=== PATIENT | female | born 1960 | race Caucasian/White ===

== ENCOUNTER 2018-01-29 09:48 | Emergency (ER) | payer BC, OTHER ==
[2018-01-29 09:59] VITALS: BP 160/96; PULSE 108; RESP 20; TEMP 98.9
--- NOTE | 2018-01-29 11:16 | XR ---
EXAMINATION TYPE: XR finger LT DATE OF EXAM: 01/29/2018 COMPARISON: NONE HISTORY: Pain TECHNIQUE: Three views are submitted. FINDINGS: The osseous structures are intact. There is no acute fracture or dislocation. Swelling involving the distal first digit. No destructive changes. Narrowing of the visualized joint spaces. IMPRESSION: 1. No definite acute fracture or dislocation if symptoms persist, follow-up study in 7 to 10 days wo uld be suggested. 2. Soft tissue swelling distally may been the basis of a cellulitis. No destructive changes.
--- NOTE | 2018-01-29 12:18 | ED ---
Skin/Abscess/FB HPI - General Chief complaint: Skin/Abscess/Foreign Body Stated complaint: Infected thumb Time Seen by Provider: 01/29/18 10:44 Source: patient, RN notes reviewed, old records reviewed Mode of arrival: ambulatory Limitations: no limitations - History of Present Illness Initial comments: 58 year old femael with CC of left thumb paronychia for one week after picking a hang nail. No history of MRSA, does report no previous paronychia. Full RIM of thumb. No redness or swelling to the hand. - Related Data Previous Rx's Medication Instructions Recorded Cephalexin [Keflex] 500 mg PO Q6HR #40 cap 01/29/18 Allergies Allergy/AdvReac Type Severity Reaction Status Date / Time Sulfa (Sulfonamide Allergy Rash/Hives Verified 01/29/18 10:11 Antibiotics) Review of Systems ROS Statement: Those systems with pertinent positive or pertinent negative responses have been documented in the HPI. ROS Other: All systems not noted in ROS Statement are negative. Past Medical History Past Medical History: No Reported History History of Any Multi-Drug Resistant Organisms: None Reported Past Surgical History: Appendectomy Past Psychological History: No Psychological Hx Reported Smoking Status: Former smoker Past Alcohol Use History: Daily Past Drug Use History: None Reported General Exam - General Exam Comments Initial Comments: This is a 58 year old female, no distress. Limitations: no limitations General appearance: alert, in no apparent distress Head exam: Present: atraumatic, normocephalic, normal inspection Eye exam: Present: normal appearance, PERRL, EOMI. Absent: scleral icterus, conjunctival injection, periorbital swelling ENT exam: Present: normal exam, mucous membranes moist Neck exam: Present: normal inspection. Absent: tenderness, meningismus, lymphadenopathy Respiratory exam: Present: normal lung sounds bilaterally. Absent: respiratory distress, wheezes, rales, rhonchi, stridor Cardiovascular Exam: Present: regular rate, normal rhythm, normal heart sounds. Absent: systolic murmur, diastolic murmur, rubs, gallop, clicks GI/Abdominal exam: Present: soft, normal bowel sounds. Absent: distended, tenderness, guarding, rebound, rigid Extremities exam: Present: full ROM, normal capillary refill, other (Evdience of 2cm paronychia over left thumb. Full ROM normal cap refil. ). Absent: normal inspection, tenderness, pedal edema, joint swelling, calf tenderness Neurological exam: Present: alert, oriented X3, CN II-XII intact Psychiatric exam: Present: normal affect, normal mood Course Vital Signs 01/29/18 09:56 Temperature 98.9 F Pulse Rate 108 H Respiratory 20 Rate Blood Pressure 160/96 O2 Sat by Pulse 98 Oximetry Procedures - Incision & Drainage Site: upper extremity (L thumb paronychia) Size (cm): 2 I&D Cleaning Method: Iodine Sterile Field Used?: Yes Scalpel Used: #11 I&D Drainage Obtained: Pus Culture Obtained?: Yes Patient Tolerated Procedure: well, no complications Medical Decision Making - Medical Decision Making 58 year old female with CC of left thumb paronychia for one week. She has 2cm abscess over thumb. Xray shows no meena abnormalities. Patient has full ROM and Neurovascularly intact. Incision and drainage completed nad pus removed. Culture obtained. Patient will do warm soaks, follow up with PCP and hand specialist. Will place on keflex. Aprox 4cc of purulent fluid removed. Disposition Clinical Impression: Paronychia of left thumb Disposition: HOME SELF-CARE Condition: Good Instructions: Paronychia (ED) Additional Instructions: Patient is advised to do frequent soaks of the thumb. Keep the wound clean and dry with dressing put antibiotic ointment on it. Take all the antibiotics as prescribed. Patient should also have a probiotic while taking the antibiotics. Make sure you take it with food. Patient should follow-up with primary care provider and hand specialist. Return to the emergency department if any alarming signs or symptoms occur. Prescriptions: Cephalexin [Keflex] 500 mg PO Q6HR #40 cap Is patient prescribed a controlled substance at d/c from ED?: No When asked, does pt state using other controlled substances?: No If prescribed controlled substance>3 days was MAPS reviewed?: No If opioid is for acute pain is fill amount 7 days or less?: No If Rx opioid, was Start Talking consent form obtained?: No Referrals: Jean Marie Melton MD [Primary Care Provider] - 1-2 days Time of Disposition: 12:15
== END 2018-01-29 12:30 | disposition home or self-care (01) ==
LOC: EEVIPCON 09:48 → EC 09:48
DX: L03.012 Cellulitis of left finger (principal); Z87.891 Personal history of nicotine dependence; Z88.2 Allergy status to sulfonamides
CPT/HCPCS: 10060; 87070; 87205; 99284

== ENCOUNTER 2018-02-16 18:22 | Inpatient (IN) | payer BC, OTHER ==
--- NOTE | 2018-02-16 18:39 | ED ---
General Adult HPI - General Chief complaint: Psychiatric Symptoms Stated complaint: psych eval Source: EMS Mode of arrival: EMS Limitations: altered mental status - History of Present Illness Initial comments: Dictation was produced using [employer] dictation software. please excuse any grammatical, word or spelling errors. Chief Complaint: 58-year-old female transferred from [facility] for suicidal ideation, hyponatremia and EtOH intoxication. History of Present Illness: Patient was seen and evaluated initially at [facility]. She was evaluated by hospitalist staff there. They recommended patient be transferred. Patient is transferred for hyponatremia, EtOH intoxication, hyperglycemia and hyponatremia. Patient allegedly told someone that she was suicidal. Patient received at her facility. She denies any suicidal ideation at this time. Patient was seen by Dr. Ewing. According to transfer documentation patient's hyperglycemia was 579, EtOH 300, sodium 122. Patient was given banana bag prior to transfer. The ROS documented in this emergency department record has been reviewed and confirmed by me. Those systems with pertinent positive or negative responses have been documented in the HPI. All other systems are other negative and/or noncontributory. - Related Data Previous Rx's Medication Instructions Recorded Cephalexin [Keflex] 500 mg PO Q6HR #40 cap 01/29/18 Allergies Allergy/AdvReac Type Severity Reaction Status Date / Time Sulfa (Sulfonamide Allergy Rash/Hives Verified 01/29/18 10:11 Antibiotics) Review of Systems ROS Statement: Those systems with pertinent positive or pertinent negative responses have been documented in the HPI. ROS Other: All systems not noted in ROS Statement are negative. Past Medical History Past Medical History: Diabetes Mellitus History of Any Multi-Drug Resistant Organisms: None Reported Past Surgical History: Appendectomy Past Psychological History: No Psychological Hx Reported Smoking Status: Former smoker Past Alcohol Use History: Daily Past Drug Use History: None Reported General Exam - General Exam Comments Initial Comments: PHYSICAL EXAM: General Impression: Alert and oriented x3, not in acute distress HEENT: Normocephalic atraumatic, extra-ocular movements intact, pupils equal and reactive to light bilaterally, mucous membranes moist. Cardiovascular: Heart regular rate and rhythm, S1&S2 audible, no murmurs, rubs or gallops Chest: Lungs clear to auscultation bilaterally, no rhonchi, no wheeze, no rales Abdomen: Bowel sounds present, abdomen soft, non-tender, non-distended, no organomegaly Musculoskeletal: Pulses present and equal in all extremities, no peripheral edema Motor: Power 5/5 bilaterally, no focal deficits noted Neurological: CN II-XII grossly intact, no focal motor or sensory deficits noted Skin: Intact with no visualized rashes Psych: Normal affect and mood Limitations: altered mental status Course Vital Signs 02/16/18 18:29 Temperature 99.3 F Pulse Rate 100 Respiratory 18 Rate Blood Pressure 139/88 O2 Sat by Pulse 95 Oximetry Medical Decision Making - Medical Decision Making ED course: 58-year-old female presents for abnormal laboratory evaluation and suicidal ideation. Patient denies being suicidal at this time. According to transfer documentation she did report some of that she was suicidal. Daughter endorses suicidal ideation as well. Patient does not have a specific means. Patient reports drinking heavily on a daily basis. She drank a case of beer prior to coming to the emergency department. Hospitalist staff at [facility] recommended patient be transferred here for further medical management. Vital signs upon arrival are within acceptable limits. Patient has mild tachycardia at 100. Tach mentation from transferring facility was reviewed by myself. There is metabolic derangement likely secondary to hyperglycemia and alcohol intoxication. Patient otherwise is stable. She has no complaints. Patient be admitted to hospitalist's request by transferring physician from other facility. Disposition Clinical Impression: Suicidal ideation, Alcohol intoxication Disposition: ADMITTED IP TO THIS HOSP Condition: Fair Referrals: None,Stated [Primary Care Provider] - 1-2 days Decision Time: 19:06
[2018-02-16] MEDS ORDERED: NALOXONE 0.4 MG/ML 1 ML VIAL IV PRN (19:03)
[2018-02-16 19:17] LABS: Basophils % (A) 0 %; Eosinophils % (A) 1 %; HCT 33.6 % (34.0-46.0); HGB 11.8 gm/dL (11.4-16.0); Lymphocytes # (A) 1.5 k/uL (1.0-4.8); Lymphocytes % (A) 29 %; MCV 91.5 fL (80.0-100.0); Mean Platelet Volume 8.4; Monocytes # (A) 0.3 k/uL (0-1.0); Monocytes % (A) 6 %; Neutrophils # (A) 3.3 k/uL (1.3-7.7); Neutrophils % (A) 62 %; Platelet Count 176 k/uL (150-450); RBC 3.68 m/uL (3.80-5.40); RDW 14.7 % (11.5-15.5); WBC 5.3 k/uL (3.8-10.6)
[2018-02-16 19:26] LABS: Magnesium 1.6 mg/dL (1.6-2.3); Potassium 3.8 mmol/L (3.5-5.1)
[2018-02-16] MEDS ORDERED: DEXTROSE 5%-0.45% NACL 1,000 ML IV ONE (20:08)
[2018-02-16] MEDS ORDERED: DEXTROSE 5%-0.2% NACL 1,000 ML IV ONE (20:12)
[2018-02-16] MEDS ORDERED: DEXTROSE 5% IN WATER 1,000 ML IV ONE (21:01)
--- NOTE | 2018-02-16 21:42 | P.HPIM ---
History of Present Illness Luna Logan a 58 y.o.femaleWith no significant PMH who present because of suicidal ideation. i saw pt earlier today at [facility] and Pt states to me she asked her girlfriend Ross to call ambulance today because she was scared that she was going to kill herself. Patient became tearful and started crying . She states that her cheated on her and that is causing big stress for her, this happened about 5 years ago and she got however she still distressed and yesterday for the first time she was thinking of killing herself, and she got scared and so called her girlfriend to call the ambulance to come to emergency room. Patient denies any suicidal plan or attempt , she denies using pills. She states she drinks alcohol every days about 15 bottles of beer. She denies liquor or wine drinking. And she wants also to quit drinking. Also in the emergency room blood tests done today at 1516 and she was found to be hyponatremic at 122. glucose 131. Her creatinine was 0.8. Urine toxicology was negative. Alcohol level was high at 307. WBC 5.2. Hemoglobin 11.5. Platelets 176. she got NS 1 Liter at [facility] , after transfer repeat labs at 18:35 shows Na of 133 , i discussed the case with the on -call continuous conveyor screen drier who recommended to place on D5 at 70 ml/hours and recheck Na in 2-3 hours for f/u. Review of Systems CONSTITUTIONAL: No fever, no malaise, no fatigue. HEENT: No recent visual problems or hearing problems. Denied any sore throat. CARDIOVASCULAR: No orthopnea, PND, no palpitations, no syncope. PULMONARY: No shortness of breath, no cough, no hemoptysis. GASTROINTESTINAL: No diarrhea, no nausea, no vomiting, no abdominal pain. Normoactive bowel sounds. NEUROLOGICAL: No headaches, no weakness, no numbness. HEMATOLOGICAL: Denies any bleeding or petechiae. GENITOURINARY: Denies any burning micturition, frequency, or urgency. MUSCULOSKELETAL/RHEUMATOLOGICAL: Denies any joint pain, swelling, or any muscle pain. ENDOCRINE: Denies any polyuria or polydipsia. Past Medical History Past Medical History: Diabetes Mellitus History of Any Multi-Drug Resistant Organisms: None Reported Past Surgical History: Appendectomy Past Psychological History: No Psychological Hx Reported Smoking Status: Former smoker Past Alcohol Use History: Daily Past Drug Use History: None Reported Medications and Allergies Allergies Allergy/AdvReac Type Severity Reaction Status Date / Time Sulfa (Sulfonamide Allergy Rash/Hives Verified 02/16/18 20:03 Antibiotics) Physical Exam Vitals: Vital Signs Temp Pulse Resp BP Pulse Ox 02/16/18 20:16 99.4 F 97 18 131/78 96 02/16/18 18:29 99.3 F 100 18 139/88 95 Intake and Output 02/16/18 02/16/18 02/16/18 06:59 14:59 22:59 Other: Weight 54.431 kg General Appearance: Alert, cooperative, in psychological distress, appears stated age. Patient is tearful and crying HEENT: PERRL, conjunctiva/corneas clear, Neck: Supple, noJVD, no thyromegaly. Chest: Lungs are clear to auscultation bilaterally, respirations unlabored, no tenderness or deformity, Heart: Regular rate and rhythm, S1, S2 normal, no murmur, rub or gallop, pulses are present and symmetric, no S3 of S4. Abdomen: Soft, nontender, bowel sounds active all 4 quadrants, no masses, no organomegaly. Extremities: Normal, atraumatic, no cyanosis or edema , peripheral pulses 2+ bilaterally. Lymph nodes: Cervical, supraclavicular, and axillary nodes normal. Neurologic: Normal, awake and oriented x 3, no focal neuro deficit noted. Psychiatric: Normal with appropriate mood and affect. Results CBC & Chem 7: 02/16/18 18:35 02/16/18 18:35 Labs: Abnormal Lab Results - Last 24 Hours (Table) 02/16/18 02/16/18 Range/Units 18:35 18:35 RBC 3.68 L (3.80-5.40) m/uL Hct 33.6 L (34.0-46.0) % Sodium 133 L (137-145) mmol/L Chloride 95 L (98-107) mmol/L Carbon Dioxide 19 L (22-30) mmol/L BUN 5 L (7-17) mg/dL Glucose 114 H (74-99) mg/dL Assessment and Plan Plan: -hyponatremia, with sodium 122, no previous level.pt denies headache or abnormal movement. Patient she got fluids in the emergency room already, 1 L of normal saline as per the ED physician. Patient was placed also on banana bag. repeat labs showed her Na went up from 122 to 133. nephrology consult input is appreciated , discussed the case over the phone, pt is placed on D5W at 70 ml/ hr and will monitor Na level -Suicidal ideation, patient was tearful and she admits to Suicidal ideation of 2 days duration, place patient on one-to-one. call psych consult. -History of alcohol abuse, patient drinks [address] the patient on CIWA protocol and vitamins. Patient states she went before for AA group. Continue with DVT and GI prophylaxis prognosis is guarded
[2018-02-16 22:24] VITALS: BMI 21.3
[2018-02-16] MEDS: FAMOTIDINE 20 MG/2 ML VIAL IV SCH (22:37)
[2018-02-16] MEDS: HEPARIN SODIUM,PORCINE 5,000 UNIT/ML 1 ML VIAL SQ SCH (22:38)
[2018-02-17 04:38] LABS: Anion Gap 16 mmol/L; Blood Urea Nitrogen 6 mg/dL (7-17); Calcium 9.4 mg/dL (8.4-10.2); Carbon Dioxide 22 mmol/L (22-30); Chloride 98 mmol/L (98-107); Glucose 110 mg/dL (74-99); Potassium 4.2 mmol/L (3.5-5.1); Sodium 136 mmol/L (137-145)
[2018-02-17] MEDS ORDERED: DESMOPRESSIN ACETATE 4 MCG/ML VIAL (MDV) IV STA (07:00)
[2018-02-17 07:17] LABS: Glucose,Whole Blood 124 mg/dL (75-99)
[2018-02-17] MEDS: THIAMINE 100 MG/ML 2 ML VIAL IM SCH (09:35)
[2018-02-17] MEDS: HEPARIN SODIUM,PORCINE 5,000 UNIT/ML 1 ML VIAL SQ SCH ×2 (09:38→21:47)
[2018-02-17] MEDS: FAMOTIDINE 20 MG/2 ML VIAL IV SCH (09:43)
[2018-02-17] MEDS: DEXTROSE 5% IN WATER 1,000 ML IV SCH ×2 (09:44→21:44)
[2018-02-17 12:32] LABS: Anion Gap 17 mmol/L; Blood Urea Nitrogen 9 mg/dL (7-17); Calcium 9.3 mg/dL (8.4-10.2); Carbon Dioxide 17 mmol/L (22-30); Chloride 101 mmol/L (98-107); Glucose 115 mg/dL (74-99); Potassium 4.5 mmol/L (3.5-5.1); Sodium 135 mmol/L (137-145)
[2018-02-17] MEDS ORDERED: LORazepam 2 MG/ML INJ IV PRN ×2 (13:02)
[2018-02-17 13:04] LABS: Appearance,Urine Turbid (Clear); Bacteria,Urine Many /hpf; Bilirubin,Urine Negative (Negative); Blood,Urine Small (Negative); Color,Urine Yellow; Glucose,Urine (UA) Negative (Negative); Ketones,Urine Negative (Negative); Leukocyte Esterase,Urine Large (Negative); Mucus,Urine Rare /hpf; Nitrite,Urine Negative (Negative); PH, Urine 6.5 (5.0-8.0); Protein,Urine 1+ (Negative); Specific Gravity,Urine 1.008 (1.001-1.035); Squamous Epithelial Cell,Urine 2 /hpf (0-4); Urobilinogen,Urine <2.0 mg/dL (<2.0); WBC,Urine >182 /hpf (0-5)
[2018-02-17] MEDS: FOLIC ACID 1 MG TAB PO SCH (13:04)
[2018-02-17] MEDS: THIAMINE 100 MG TAB PO SCH (13:04)
[2018-02-17] MEDS: MULTIVITAMINS, THERA 1 EACH TAB PO SCH (13:04)
--- NOTE | 2018-02-17 15:11 | P.PN ---
Addendum entered and electronically signed by Madina Bonilla NP-C 02/17/18 15: 16: Plan: Initiate empiric antibiotics Rocephin, while awaiting urine culture results. Original Note: <Madina Bonilla - Last Filed: 02/17/18 14:47> Subjective Progress Note Date: 02/17/18 Progress note being dictated for Dr. Ewing Interval history:Luna Logan a 58 y.o.femaleWith no significant PMH who present because of suicidal ideation. i saw pt earlier today at [facility] and Pt states to me she asked her girlfriend Ross to call ambulance today because she was scared that she was going to kill herself. Patient became tearful and started crying . She states that her cheated on her and that is causing big stress for her, this happened about 5 years ago and she got however she still distressed and yesterday for the first time she was thinking of killing herself, and she got scared and so called her girlfriend to call the ambulance to come to emergency room. Patient denies any suicidal plan or attempt, she denies using pills. She states she drinks alcohol every days about 15 bottles of beer. She denies liquor or wine drinking. And she wants also to quit drinking. Also in the emergency room blood tests done today at and she was found to be hyponatremic at 122. glucose 131. Her creatinine was 0.8. Urine toxicology was negative. Alcohol level was high at 307. WBC 5.2. Hemoglobin 11.5. Platelets 176. she got NS 1 Liter at [facility] , after transfer repeat labs at 18:35 shows Na of 133 , i discussed the case with the on -call nut orchardist who recommended to place on D5 at 70 ml/hours and recheck Na in 2-3 hours for f/u. Review of Systems CONSTITUTIONAL: No fever, no malaise, no fatigue. HEENT: No recent visual problems or hearing problems. Denied any sore throat. CARDIOVASCULAR: No orthopnea, PND, no palpitations, no syncope. PULMONARY: No shortness of breath, no cough, no hemoptysis. GASTROINTESTINAL: No diarrhea, no nausea, no vomiting, no abdominal pain. Normoactive bowel sounds. NEUROLOGICAL: No headaches, no weakness, no numbness. HEMATOLOGICAL: Denies any bleeding or petechiae. GENITOURINARY: Denies any burning micturition, frequency, or urgency. MUSCULOSKELETAL/RHEUMATOLOGICAL: Denies any joint pain, swelling, or any muscle pain. ENDOCRINE: Denies any polyuria or polydipsia. 02/17/2018 suicide precautions maintained, sitter at bedside. Patient calm and cooperative. Maintained on D5 W with sodium significantly improved, currently 135 .denies lightheadedness dizziness or focal deficits. Denies headache.No seizure activity reported. Good diet intake. Denies nausea vomiting or diarrhea. UA suggestive of possible UTI, asymptomatic, T-max 99.4. Psychiatry consult in place with recommendations pending. Denies chest pain, palpitations or shortness of breath. Objective - Vital Signs Vital signs: Vital Signs Temp 97.1 F L 02/17/18 07:52 Pulse 103 H 02/17/18 08:51 Resp 16 02/17/18 07:52 BP 139/83 02/17/18 08:51 Pulse Ox 96 02/17/18 07:52 Intake & Output 02/16/18 02/17/18 02/17/18 18:59 06:59 18:59 Intake Total 800 180 Output Total 50 Balance 800 130 Weight 54.431 kg 53 kg Intake: Intake, IV Titration 800 Amount Dextrose 5% in Water 1, 800 000 ml @ 100 mls/hr IV . Q10H ONE Rx#:[id number] Oral 180 Output: Urine 50 Other: Voiding Method Toilet # Voids 1 - Exam General Appearance: Alert and oriented 3, calm, cooperative, making eye contact while conversing HEENT: PERRL, conjunctiva/corneas clear, Neck: Supple, noJVD, no thyromegaly. Chest: Lungs are clear to auscultation bilaterally, respirations unlabored, no tenderness or deformity, Heart: Regular rate and rhythm, S1, S2 normal, no murmur, rub or gallop, pulses are present and symmetric, no S3 of S4. Abdomen: Soft, nontender, bowel sounds active all 4 quadrants, no masses, no organomegaly. Extremities: Normal, atraumatic, no cyanosis or edema , peripheral pulses 2+ bilaterally. Lymph nodes: Cervical, supraclavicular, and axillary nodes normal. Neurologic: Normal, awake and oriented x 3, no focal deficit noted. Psychiatric: Normal with appropriate mood and affect. - Labs CBC & Chem 7: 02/16/18 18:35 02/17/18 11:18 Labs: Abnormal Lab Results - Last 24 Hours (Table) 02/16/18 02/16/18 02/16/18 Range/Units 18:35 18:35 23:00 RBC 3.68 L (3.80-5.40) m/uL Hct 33.6 L (34.0-46.0) % Sodium 133 L (137-145) mmol/L Chloride 95 L (98-107) mmol/L Carbon Dioxide 19 L (22-30) mmol/L BUN 5 L (7-17) mg/dL Glucose 114 H (74-99) mg/dL POC Glucose (mg/dL) (75-99) mg/dL Urine Appearance (Clear) Urine Protein (Negative) Urine Blood (Negative) Ur Leukocyte Esterase (Negative) Urine WBC (0-5) /hpf Urine WBC Clumps (None) /hpf Urine Bacteria (None) /hpf Urine Mucus (None) /hpf Ur Random Sodium 9 L (30-90) mmol/L 02/17/18 02/17/18 02/17/18 Range/Units 00:28 07:14 11:18 RBC (3.80-5.40) m/uL Hct (34.0-46.0) % Sodium 136 L 135 L (137-145) mmol/L Chloride (98-107) mmol/L Carbon Dioxide 17 L (22-30) mmol/L BUN 6 L (7-17) mg/dL Glucose 110 H 115 H (74-99) mg/dL POC Glucose (mg/dL) 124 H (75-99) mg/dL Urine Appearance (Clear) Urine Protein (Negative) Urine Blood (Negative) Ur Leukocyte Esterase (Negative) Urine WBC (0-5) /hpf Urine WBC Clumps (None) /hpf Urine Bacteria (None) /hpf Urine Mucus (None) /hpf Ur Random Sodium (30-90) mmol/L 02/17/18 Range/Units 12:29 RBC (3.80-5.40) m/uL Hct (34.0-46.0) % Sodium (137-145) mmol/L Chloride (98-107) mmol/L Carbon Dioxide (22-30) mmol/L BUN (7-17) mg/dL Glucose (74-99) mg/dL POC Glucose (mg/dL) (75-99) mg/dL Urine Appearance Turbid H (Clear) Urine Protein 1+ H (Negative) Urine Blood Small H (Negative) Ur Leukocyte Esterase Large H (Negative) Urine WBC >182 H (0-5) /hpf Urine WBC Clumps Many H (None) /hpf Urine Bacteria Many H (None) /hpf Urine Mucus Rare H (None) /hpf Ur Random Sodium (30-90) mmol/L Assessment and Plan Assessment: -hyponatremia, sodium 122, initially, improving on D5W - alcohol abuse, patient drinks 15 beers daily. -Diabetes mellitus -Possible acute UTI, asymptomatic, culture pending. Plan: Continue on current medication regime ,monitoring and symptomatic treatment..Maintain CIWA protocol, IV fluid hydration with D5W as per nephrology.Close monitoring of sodium with repeat labs ordered for a.m. Maintain seizure precautions. Continue with suicide precautions/safety and occupational health manager. Await psychiatry recommendations. Close monitoring of Accu-Cheks. Urine culture ordered Further recommendations to follow. The impression and plan of care has been dictated as directed. : I performed a history and examination of this patient, discussed the same with the dictator. I agree with the dictator's note ,documented as a scribe. Any additional findings or plans will be noted. <Sheet,Tom E - Last Filed: 02/18/18 00:24> Objective - Vital Signs Vital signs: Vital Signs Temp 98.0 F 02/17/18 23:42 Pulse 76 02/17/18 23:42 Resp 16 02/17/18 23:42 BP 142/80 02/17/18 23:42 Pulse Ox 99 02/17/18 23:42 Intake & Output 02/17/18 02/17/18 02/18/18 06:59 18:59 06:59 Intake Total 800 360 240 Output Total 450 Balance 800 -90 240 Weight 53 kg Intake: Intake, IV Titration 800 Amount Dextrose 5% in Water 1, 800 000 ml @ 100 mls/hr IV . Q10H ONE Rx#:[id number] Oral 360 240 Output: Urine 450 Other: Voiding Method Toilet Toilet # Voids 1 2 - Labs CBC & Chem 7: 02/16/18 18:35 02/17/18 22:53 Labs: Abnormal Lab Results - Last 24 Hours (Table) 02/16/18 02/17/18 02/17/18 Range/Units 23:00 00:28 07:14 Sodium 136 L (137-145) mmol/L Carbon Dioxide (22-30) mmol/L BUN 6 L (7-17) mg/dL Glucose 110 H (74-99) mg/dL POC Glucose (mg/dL) 124 H (75-99) mg/dL Urine Appearance (Clear) Urine Protein (Negative) Urine Blood (Negative) Ur Leukocyte Esterase (Negative) Urine WBC (0-5) /hpf Urine WBC Clumps (None) /hpf Urine Bacteria (None) /hpf Urine Mucus (None) /hpf Ur Random Sodium 9 L (30-90) mmol/L 02/17/18 02/17/18 02/17/18 Range/Units 11:18 12:29 12:29 Sodium 135 L (137-145) mmol/L Carbon Dioxide 17 L (22-30) mmol/L BUN (7-17) mg/dL Glucose 115 H (74-99) mg/dL POC Glucose (mg/dL) (75-99) mg/dL Urine Appearance Turbid H (Clear) Urine Protein 1+ H (Negative) Urine Blood Small H (Negative) Ur Leukocyte Esterase Large H (Negative) Urine WBC >182 H (0-5) /hpf Urine WBC Clumps Many H (None) /hpf Urine Bacteria Many H (None) /hpf Urine Mucus Rare H (None) /hpf Ur Random Sodium 7 L (30-90) mmol/L 02/17/18 02/17/18 02/17/18 Range/Units 17:04 18:06 20:40 Sodium 134 L (137-145) mmol/L Carbon Dioxide (22-30) mmol/L BUN (7-17) mg/dL Glucose (74-99) mg/dL POC Glucose (mg/dL) 113 H 166 H (75-99) mg/dL Urine Appearance (Clear) Urine Protein (Negative) Urine Blood (Negative) Ur Leukocyte Esterase (Negative) Urine WBC (0-5) /hpf Urine WBC Clumps (None) /hpf Urine Bacteria (None) /hpf Urine Mucus (None) /hpf Ur Random Sodium (30-90) mmol/L 02/17/18 Range/Units 22:53 Sodium 133 L (137-145) mmol/L Carbon Dioxide (22-30) mmol/L BUN (7-17) mg/dL Glucose (74-99) mg/dL POC Glucose (mg/dL) (75-99) mg/dL Urine Appearance (Clear) Urine Protein (Negative) Urine Blood (Negative) Ur Leukocyte Esterase (Negative) Urine WBC (0-5) /hpf Urine WBC Clumps (None) /hpf Urine Bacteria (None) /hpf Urine Mucus (None) /hpf Ur Random Sodium (30-90) mmol/L Assessment and Plan Assessment: i have reviewed the note of the PA and I agree with it except what is mentioned below pt is seen and examined by me at bed side, no change from yesterday exam except she is less tearful today pt was admitted to [facility] for suicidal ideation. with hyponatremia and alcohol abuse/withdrawal. pt transferred from [facility] to [facility] for psych evaluation , before transfer pt got fluid as 1 L of NS and banana bag. Her Na on admission was 122. when we saw the pt and repeated the NA level it was 133, nephrology team was consulted. pt was started on D5W at 70 ml/ hr and then increased to 100 ml/hr. pt Na kept trending up to 135 and 137. pt got desmopressin as per nephrology. currently Na is trending down gradually on D5W. pt is still on D5W Na Level is kept monitored closely. nephrology team still following the pt and their input is appreciated. pt does not have REILLY, or neurologic s/s , no seizure. pt still suffering from withdrwal from alcohol and needs treatment. pt was suicidal. sitter at bed side. psych to evaluate pt. pt was started on ceftriaxone for possible UTI, UC is pending. pt wants to involve her 2 daughters at bed side with her health information
--- NOTE | 2018-02-17 16:11 | CONS ---
CONSULTATION REASON FOR CONSULT: Hyponatremia. HISTORY OF PRESENT ILLNESS: Patient is a 58-year-old female with a history of chronic ETOH abuse and large amounts of beer consumption. Patient presented to the hospital with suicidal ideation. She was crying. She was tearful. She states she does not remember what happened. She did have mental status changes. She was found to be hyponatremic with a serum sodium of 122. Patient was given normal saline fluid bolus. Her sodium had come up to 133 within 3 hours. Last night patient was started on D5WITH. Her sodium continued to increase up to 137, at which time she received a dose of DDAVP. Following that, repeat sodium was 135. Patient has been eating well. She was found to have an underlying urinary tract infection. Patient denies any prior history of hyponatremia. PAST MEDICAL HISTORY: 1. Chronic EtOH abuse. 2. Type 2 diabetes. SOCIAL HISTORY: She is a former smoker. She drinks 15 or more beers per day. PAST SURGICAL HISTORY: Appendectomy. ALLERGIES: SULFA. CURRENT MEDICATIONS: None. PHYSICAL EXAMINATION: Patient is comfortable, awake. She is alert and oriented x3, not in any acute distress. Blood pressure is 136/78, heart rate 103 per minute. She is afebrile. EXAMINATION OF THE HEART: S1, S2. EXAMINATION OF LUNGS: Bilateral breath sounds are heard. ABDOMEN: Soft, non-tender. Examination of lower extremities shows no evidence of edema. TEST ENGINEERING TECHNICIAN exam is grossly intact. Patient moving all 4 extremities. LABS: Sodium 135, potassium 4.5. UA shows WBCs more than 182, 1+ protein. ASSESSMENT: 1. Hyponatremia which was hypovolemic and associated with decreased osmole intake, rapidly corrected initially. However, we tried to slow down the rise in the serum sodium with D5W. Patient did get a dose of desmopressin as well. The sodium is now down to 135. We will continue with the D5W and repeat another set of electrolytes in 3 hours. I will bring down the sodium to around 130 and then we can let it rise after that by tomorrow. Patient can eat as she likes. 2. Urinary tract infection, maintained on empiric antibiotics. 3. Altered mentation secondary to urinary tract infection and hyponatremia; currently seems to have improved. 4. Suicidal ideation, possibly related to underlying metabolic disorder. PLAN: Continue D5W for now. Repeat sodium in 3 hours. Maintain good oral intake. MMODL / IJN: [id number] /
[2018-02-17 17:07] LABS: Glucose,Whole Blood 113 mg/dL (75-99)
[2018-02-17] MEDS: cefTRIAXone IN SWFI 1,000 MG/10 ML SYRINGE IVP SCH (17:25)
[2018-02-17] MEDS: INSULIN ASPART 100 UNIT/ML 1 ML 10 ML VIAL SQ SCH ×2 (17:57→21:47)
[2018-02-17 20:51] LABS: Glucose,Whole Blood 166 mg/dL (75-99)
[2018-02-17] MEDS: FAMOTIDINE 20 MG TAB PO SCH (21:50)
[2018-02-18 02:44] LABS: Hemoglobin A1C 5.1 % (4.0-6.0)
[2018-02-18 07:57] LABS: Glucose,Whole Blood 130 mg/dL (75-99)
[2018-02-18] MEDS: INSULIN ASPART 100 UNIT/ML 1 ML 10 ML VIAL SQ SCH ×4 (08:14→22:31)
[2018-02-18] MEDS: THIAMINE 100 MG/ML 2 ML VIAL IM SCH (08:48)
[2018-02-18] MEDS: FAMOTIDINE 20 MG TAB PO SCH ×2 (08:48→22:30)
[2018-02-18] MEDS: HEPARIN SODIUM,PORCINE 5,000 UNIT/ML 1 ML VIAL SQ SCH ×2 (08:48→22:31)
[2018-02-18] MEDS: DEXTROSE 5% IN WATER 1,000 ML IV SCH ×2 (10:05→23:04)
[2018-02-18 11:41] LABS: Glucose,Whole Blood 112 mg/dL (75-99)
[2018-02-18 12:43] LABS: Basophils % (A) 0 %; Eosinophils # (A) 0.1 k/uL (0-0.7); Eosinophils % (A) 1 %; HCT 36.8 % (34.0-46.0); Lymphocytes # (A) 1.1 k/uL (1.0-4.8); Lymphocytes % (A) 18 %; MCH 31.1 pg (25.0-35.0); MCHC 32.6 g/dL (31.0-37.0); MCV 95.4 fL (80.0-100.0); Mean Platelet Volume 6.8; Monocytes # (A) 0.4 k/uL (0-1.0); Monocytes % (A) 6 %; Neutrophils # (A) 4.2 k/uL (1.3-7.7); Neutrophils % (A) 73 %; Platelet Count 196 k/uL (150-450); RBC 3.85 m/uL (3.80-5.40); RDW 15.1 % (11.5-15.5); WBC 5.8 k/uL (3.8-10.6)
[2018-02-18 13:08] LABS: Anion Gap 16 mmol/L; Blood Urea Nitrogen 7 mg/dL (7-17); Calcium 9.4 mg/dL (8.4-10.2); Carbon Dioxide 21 mmol/L (22-30); Chloride 101 mmol/L (98-107); Glucose 122 mg/dL (74-99); Potassium 3.4 mmol/L (3.5-5.1); Sodium 138 mmol/L (137-145)
[2018-02-18] MEDS: FOLIC ACID 1 MG TAB PO SCH (14:09)
[2018-02-18] MEDS: MULTIVITAMINS, THERA 1 EACH TAB PO SCH (14:09)
[2018-02-18] MEDS: THIAMINE 100 MG TAB PO SCH (14:09)
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
[2018-02-18] MEDS: cefTRIAXone IN SWFI 1,000 MG/10 ML SYRINGE IVP SCH (15:45)
[2018-02-18] MEDS ORDERED: Potassium Replacement Protocol 1 EACH MISC MISCELLANE PRN ×2 (16:59→23:06)
[2018-02-18] MEDS ORDERED: Magnesium Replacement Protocol 1 EACH MISC MISCELLANE PRN ×2 (17:00→23:06)
--- NOTE | 2018-02-18 17:08 | P.PN ---
<Madina Bonilla - Last Filed: 02/18/18 17:01> Subjective Progress Note Date: 02/18/18 Progress note being dictated for Dr. Ewing Interval history:Luna Logan a 58 y.o.femaleWith no significant PMH who present because of suicidal ideation. i saw pt earlier today at [facility] and Pt states to me she asked her girlfriend Ross to call ambulance today because she was scared that she was going to kill herself. Patient became tearful and started crying . She states that her cheated on her and that is causing big stress for her, this happened about 5 years ago and she got however she still distressed and yesterday for the first time she was thinking of killing herself, and she got scared and so called her girlfriend to call the ambulance to come to emergency room. Patient denies any suicidal plan or attempt, she denies using pills. She states she drinks alcohol every days about 15 bottles of beer. She denies liquor or wine drinking. And she wants also to quit drinking. Also in the emergency room blood tests done today at and she was found to be hyponatremic at 122. glucose 131. Her creatinine was 0.8. Urine toxicology was negative. Alcohol level was high at 307. WBC 5.2. Hemoglobin 11.5. Platelets 176. she got NS 1 Liter at [facility] , after transfer repeat labs at 18:35 shows Na of 133 , i discussed the case with the on -call shipboard intelligence analyst who recommended to place on D5 at 70 ml/hours and recheck Na in 2-3 hours for f/u. Review of Systems CONSTITUTIONAL: No fever, no malaise, no fatigue. HEENT: No recent visual problems or hearing problems. Denied any sore throat. CARDIOVASCULAR: No orthopnea, PND, no palpitations, no syncope. PULMONARY: No shortness of breath, no cough, no hemoptysis. GASTROINTESTINAL: No diarrhea, no nausea, no vomiting, no abdominal pain. Normoactive bowel sounds. NEUROLOGICAL: No headaches, no weakness, no numbness. HEMATOLOGICAL: Denies any bleeding or petechiae. GENITOURINARY: Denies any burning micturition, frequency, or urgency. MUSCULOSKELETAL/RHEUMATOLOGICAL: Denies any joint pain, swelling, or any muscle pain. ENDOCRINE: Denies any polyuria or polydipsia. 02/17/2018 suicide precautions maintained, sitter at bedside. Patient calm and cooperative. Maintained on D5 W with sodium significantly improved, currently 135 .denies lightheadedness dizziness or focal deficits. Denies headache.No seizure activity reported. Good diet intake. Denies nausea vomiting or diarrhea. UA suggestive of possible UTI, asymptomatic, T-max 99.4. Psychiatry consult in place with recommendations pending. Denies chest pain, palpitations or shortness of breath. 02/18/2018 evaluated by psychiatry with recommendations noted-no inpatient psychiatry recommended. Maintained on D5W with sodium continuing to improve. Seizure precautions maintained, no seizure activity reported. Good diet intake. Denies lightheadedness dizziness or focal deficits. No headaches. Denies chest pain, palpitations or shortness of breath. Urine culture pending. Afebrile. Objective - Vital Signs Vital signs: Vital Signs Temp 98.3 F 02/18/18 12:50 Pulse 72 02/18/18 12:50 Resp 16 02/18/18 12:50 BP 134/84 02/18/18 12:50 Pulse Ox 98 02/18/18 12:50 Intake & Output 02/17/18 02/18/18 02/18/18 18:59 06:59 18:59 Intake Total 360 1040 940 Output Total 450 Balance -90 1040 940 Intake: Intake, IV Titration 800 700 Amount Dextrose 5% in Water 1, 800 000 ml @ 100 mls/hr IV . Q10H [facility] Rx#:[id number] Dextrose 5% in Water 1, 700 000 ml @ 70 mls/hr IV . [id number] [facility] Rx#:[id number] Oral 360 240 240 Output: Urine 450 Other: Voiding Method Toilet Toilet # Voids 1 3 - Exam General Appearance: Alert and oriented 3, calm, cooperative, making eye contact while conversing HEENT: PERRL, conjunctiva/corneas clear, Neck: Supple, noJVD, no thyromegaly. Chest: Lungs are clear to auscultation bilaterally, respirations unlabored, no tenderness or deformity, Heart: Regular rate and rhythm, S1, S2 normal, no murmur, rub or gallop, pulses are present and symmetric, no S3 of S4. Abdomen: Soft, nontender, bowel sounds active all 4 quadrants, no masses, no organomegaly. Extremities: Normal, atraumatic, no cyanosis or edema , peripheral pulses 2+ bilaterally. Lymph nodes: Cervical, supraclavicular, and axillary nodes normal. Neurologic: Normal, awake and oriented x 3, no focal deficit noted. Psychiatric: Normal with appropriate mood and affect. - Labs CBC & Chem 7: 02/18/18 12:22 02/18/18 12:22 Labs: Abnormal Lab Results - Last 24 Hours (Table) 02/17/18 02/17/18 02/17/18 Range/Units 17:04 18:06 20:40 Sodium 134 L (137-145) mmol/L Potassium (3.5-5.1) mmol/L Carbon Dioxide (22-30) mmol/L Glucose (74-99) mg/dL POC Glucose (mg/dL) 113 H 166 H (75-99) mg/dL 02/17/18 02/18/18 02/18/18 Range/Units 22:53 07:54 11:18 Sodium 133 L (137-145) mmol/L Potassium (3.5-5.1) mmol/L Carbon Dioxide (22-30) mmol/L Glucose (74-99) mg/dL POC Glucose (mg/dL) 130 H 112 H (75-99) mg/dL 02/18/18 Range/Units 12:22 Sodium (137-145) mmol/L Potassium 3.4 L (3.5-5.1) mmol/L Carbon Dioxide 21 L (22-30) mmol/L Glucose 122 H (74-99) mg/dL POC Glucose (mg/dL) (75-99) mg/dL Assessment and Plan Assessment: -hyponatremia, sodium 122, initially, improving on D5W - alcohol abuse, patient drinks 15 beers daily. -Diabetes mellitus -Possible acute UTI, asymptomatic, culture pending. -Acute metabolic encephalopathy secondary to electrolyte abnormality, alcohol abuse, possible acute UTI, improving Plan: Continue on current medication regime ,monitoring and symptomatic treatment.. Maintain process safety manager/elopement precautions as per psychiatry. Urine culture pending .Maintain CIWA protocol, IV fluid hydration with D5W as per nephrology.Close monitoring of sodium with repeat labs ordered for a.m. Maintain seizure precautions. Continue with suicide precautions/process safety manager. Await psychiatry recommendations. Close monitoring of Accu-Cheks. Urine cu; ture pending. Discharge planning in progress for possibly AFC tomorrow, pending further discussion between social work and legal guardian. Further recommendations to follow. The impression and plan of care has been dictated as directed. : I performed a history and examination of this patient, discussed the same with the dictator. I agree with the dictator's note ,documented as a scribe. Any additional findings or plans will be noted. <Sheet,Tom E - Last Filed: 02/18/18 23:26> Objective - Vital Signs Vital signs: Vital Signs Temp 98.3 F 02/18/18 12:50 Pulse 72 02/18/18 12:50 Resp 16 02/18/18 12:50 BP 134/84 02/18/18 12:50 Pulse Ox 98 02/18/18 12:50 Intake & Output 02/18/18 02/18/18 02/19/18 06:59 18:59 06:59 Intake Total 1040 940 Balance 1040 940 Intake: Intake, IV Titration 800 700 Amount Dextrose 5% in Water 1, 800 000 ml @ 100 mls/hr IV . Q10H [facility] Rx#:[id number] Dextrose 5% in Water 1, 700 000 ml @ 70 mls/hr IV . [id number] [facility] Rx#:[id number] Oral 240 240 Other: Voiding Method Toilet Toilet # Voids 3 - Labs CBC & Chem 7: 02/18/18 12:22 02/18/18 20:02 Labs: Abnormal Lab Results - Last 24 Hours (Table) 02/17/18 02/18/18 02/18/18 Range/Units 22:53 07:54 11:18 Sodium 133 L (137-145) mmol/L Potassium (3.5-5.1) mmol/L Carbon Dioxide (22-30) mmol/L Glucose (74-99) mg/dL POC Glucose (mg/dL) 130 H 112 H (75-99) mg/dL 02/18/18 02/18/18 02/18/18 Range/Units 12:22 17:09 20:02 Sodium 135 L (137-145) mmol/L Potassium 3.4 L (3.5-5.1) mmol/L Carbon Dioxide 21 L (22-30) mmol/L Glucose 122 H (74-99) mg/dL POC Glucose (mg/dL) 158 H (75-99) mg/dL 02/18/18 Range/Units 22:27 Sodium (137-145) mmol/L Potassium (3.5-5.1) mmol/L Carbon Dioxide (22-30) mmol/L Glucose (74-99) mg/dL POC Glucose (mg/dL) 131 H (75-99) mg/dL Assessment and Plan Assessment: I have reviewed the not of the PA as above and I agree with it except what is mentioned below pt is seen and examined by me at bed side. pt alcohol withdrawal s/s are improving and she is still on ativan prn. no s/s of resp distress. no s/s of hallucination or delusion. no seizure like activity. pt she has a public guardian, she is been evaluated by psychiatric service and found her to have a long history of alcohol abuse, pt has difficulty taking care of her-self, her room was in disarray and needs cleaning to the point she needed to move to a motel so it can be cleaned. Psychiatrist did not recommend inpatient psychiatric admission. However he recommended discharged pt to some form of supervised living, or inpatient alcohol rehab program, and sitter is kept at bed side for safety, pt is counseled to quit drinking alcohol, she is been evaluated by psychiatrist for her alcohol problem as well. geriatric social worker has been consulted to help in discharge planning. pt today sodium level is followed up closely and last result is at 135, nephrology team are aware and following the pt closely, pt to continue on D5W at 100 ml/hr as per nephrology recommendation. pt already got desmopressin to prevent further increase in Na. pt looks comfortable in bed , not in distress, no REILLY, no CP/SOB, no change in urine or bowel habit. pt is still on abx for UTI. prognosis remains guarded DVT px heparin GI px Pepcid
[2018-02-18 17:16] LABS: Glucose,Whole Blood 158 mg/dL (75-99)
--- NOTE | 2018-02-18 19:03 | PN ---
PROGRESS NOTE The patient is seen for followup for hyponatremia. Patient did have a rapid increase in her sodium on initial admission prior to being transferred to [facility]. Since admission, she has been on D5W. Patient also received a dose of desmopressin to avoid rapid increase in her sodium. She has been staying at about 133-136 mEq/L with D5W on board. This morning, patient is comfortable. She denies any significant complaints. Blood pressure was 135/90, heart rate 80 per minute. Patient is afebrile. HEART: S1, S2. LUNGS: Bilateral breath sounds are heard. Abdomen is soft, nontender. Lower extremities show no evidence of edema. CHEMICAL CELL CHANGER shows patient moving all 4 extremities. LABS: Show sodium 138, potassium 3.4, serum creatinine 0.72. Magnesium 1.8. ASSESSMENT: 1. Hyponatremia which is mainly hypovolemic and related to decreased intake of osmoles associated with beer potomania. The patient had an initial rapid correction since then. She has been maintained on D5W to prevent a further increase in her sodium. Her D5 water has been at about 70-100 cc an hour. It was decreased to 70 mL an hour last night when her sodium was 133 and this afternoon, it has come back up to 138. I will increase her D5W back to 100 mL an hour. The patient can be possibly discharged in the next day. Since she has been more than 48 hours since her initial admission, we can allow the serum sodium to rise. 2. Hypokalemia. Will replace. 3. Suicidal ideation on initial admission, being evaluated by Psychiatry. 4. Alcohol abuse. The patient has been advised to decrease her intake of beer and other alcohols. This is been discussed by Psychiatry as well. MMODL / IJN: [id number] /
[2018-02-18] MEDS: LORazepam 2 MG/ML INJ IV PRN ×2 (20:50→22:35)
[2018-02-18] MEDS ORDERED: HALOPERIDOL LACTATE 5 MG/ML 1 ML VIAL IM PRN (20:56)
[2018-02-18 22:40] LABS: Glucose,Whole Blood 131 mg/dL (75-99)
[2018-02-18] MEDS ORDERED: POTASSIUM CHLORIDE ER 20 MEQ TAB.ER PO STA (23:20)
[2018-02-18] MEDS ORDERED: MAGNESIUM OXIDE 400 MG TAB PO SCH (23:30)
[2018-02-18] MEDS: MAGNESIUM SULFATE-D5W PMX 1 GM in DEXTROSE/WATER 1 100ML.BAG IVPB SCH (23:50)
[2018-02-19] MEDS: MAGNESIUM SULFATE-D5W PMX 1 GM in DEXTROSE/WATER 1 100ML.BAG IVPB SCH (01:07)
[2018-02-19] MEDS: POTASSIUM CHLORIDE ER 20 MEQ TAB.ER PO SCH ×2 (02:19→03:14)
[2018-02-19 04:45] LABS: Basophils % (A) 0 %; Eosinophils # (A) 0.1 k/uL (0-0.7); Eosinophils % (A) 1 %; HCT 33.9 % (34.0-46.0); HGB 11.2 gm/dL (11.4-16.0); Lymphocytes # (A) 1.2 k/uL (1.0-4.8); Lymphocytes % (A) 23 %; MCH 31.4 pg (25.0-35.0); MCHC 33.2 g/dL (31.0-37.0); MCV 94.6 fL (80.0-100.0); Mean Platelet Volume 7.1; Monocytes # (A) 0.4 k/uL (0-1.0); Monocytes % (A) 7 %; Neutrophils # (A) 3.6 k/uL (1.3-7.7); Neutrophils % (A) 67 %; Platelet Count 171 k/uL (150-450); RBC 3.58 m/uL (3.80-5.40); WBC 5.4 k/uL (3.8-10.6)
[2018-02-19 04:56] LABS: Anion Gap 8 mmol/L; Blood Urea Nitrogen 4 mg/dL (7-17); Calcium 9.6 mg/dL (8.4-10.2); Carbon Dioxide 26 mmol/L (22-30); Chloride 103 mmol/L (98-107); Glucose 109 mg/dL (74-99); Sodium 137 mmol/L (137-145)
[2018-02-19 07:54] LABS: Glucose,Whole Blood 110 mg/dL (75-99)
[2018-02-19] MEDS: INSULIN ASPART 100 UNIT/ML 1 ML 10 ML VIAL SQ SCH ×4 (08:01→20:06)
[2018-02-19] MEDS: FAMOTIDINE 20 MG TAB PO SCH ×2 (08:05→20:06)
[2018-02-19] MEDS: THIAMINE 100 MG/ML 2 ML VIAL IM SCH (08:07)
[2018-02-19] MEDS: HEPARIN SODIUM,PORCINE 5,000 UNIT/ML 1 ML VIAL SQ SCH ×2 (08:07→20:06)
[2018-02-19 11:44] LABS: Glucose,Whole Blood 138 mg/dL (75-99)
[2018-02-19] MEDS: DEXTROSE 5% IN WATER 1,000 ML IV SCH ×2 (12:09→23:04)
[2018-02-19] MEDS: MULTIVITAMINS, THERA 1 EACH TAB PO SCH (12:09)
[2018-02-19] MEDS: THIAMINE 100 MG TAB PO SCH (12:09)
[2018-02-19] MEDS: FOLIC ACID 1 MG TAB PO SCH (12:09)
--- NOTE | 2018-02-19 13:26 | P.DS ---
Providers Date of admission: 02/16/18 19:03 Expected date of discharge: 02/19/18 Attending physician: Keyla Rg Consults: 02/16/18 19:06 Consult Physician Routine Consulting Provider: Kamille Dominguez Consult Reason/Comments: metabolic derangment Do you want consulting provider notified?: Yes, Notify in am 02/16/18 21:36 Consult Physician Routine Consulting Provider: Daniella Ramírez Consult Reason/Comments: suicidal ideation Do you want consulting provider notified?: Yes Primary care physician: Stated None [facility] Hospital Course: Final Diagnoses: -hyponatremia,resolved - alcohol abuse, patient drinks 15 beers daily. -Diabetes mellitus -Possible acute UTI, asymptomatic, culture pending. -Acute metabolic encephalopathy secondary to electrolyte abnormality, alcohol abuse, possible acute UTI, improving Hospital course:Luna Logan a 58 y.o.femaleWith no significant PMH who present because of suicidal ideation. i saw pt earlier today at [facility] and Pt states to me she asked her girlfriend Ross to call ambulance today because she was scared that she was going to kill herself. Patient became tearful and started crying . She states that her cheated on her and that is causing big stress for her, this happened about 5 years ago and she got however she still distressed and yesterday for the first time she was thinking of killing herself, and she got scared and so called her girlfriend to call the ambulance to come to emergency room. Patient denies any suicidal plan or attempt, she denies using pills. She states she drinks alcohol every days about 15 bottles of beer. She denies liquor or wine drinking. And she wants also to quit drinking. Also in the emergency room blood tests done today at 15 16 and she was found to be hyponatremic at 122. glucose 131. Her creatinine was 0.8. Urine toxicology was negative. Alcohol level was high at 307. WBC 5.2. Hemoglobin 11.5. Platelets 176. she got NS 1 Liter at [facility] , after transfer repeat labs at 18:35 shows Na of 133 , i discussed the case with the on -call brand advocate who recommended to place on D5 at 70 ml/hours and recheck Na in 2-3 hours for f/u. Seizure & Suicide precautions maintained with sitter at bedside. Maintained on D5 W ,IV fluid hydration, CIWA protocol .Sodium currently 137.significant clinical improvement .Evaluated by psychiatry with recommendations noted-no inpatient psychiatry recommended. quality worker discussed with guardian, increased structured environment /living arrangement such as an AFC, sober living house. At this time, legal guardian request patient to be discharged back to her apartment with further supervisory plan in place. Patient will be discharged home in a stable condition with guarded prognosis, pending psychiatry clearance. Exam General Appearance: Alert and oriented 3, calm, cooperative, making eye contact while conversing Chest: Lungs are clear to auscultation bilaterally, respirations unlabored, no tenderness or deformity, Heart: Regular rate and rhythm, S1, S2 normal, no murmur, rub or gallop, pulses are present and symmetric, no S3 of S4. Abdomen: Soft, nontender, bowel sounds active all 4 quadrants, no masses, no organomegaly. Neurologic: no focal deficit noted. The impression and plan of care has been dictated as directed. : I performed a history and examination of this patient, discussed the same with the dictator. I agree with the dictator's note ,documented as a scribe. Any additional findings or plans will be noted. Time taken: 35 minutes Patient Condition at Discharge: Stable Plan - Discharge Summary Discharge Rx Participant: Yes New Discharge Prescriptions: New Famotidine [Pepcid] 20 mg PO Q12HR #60 tab Folic Acid 1 mg PO DAILY@1200 #30 tab Multivitamins, Thera [Multivitamin (formulary)] 1 each PO DAILY@1200 #30 tab Thiamine [Vitamin B-1] 100 mg PO DAILY@1200 #30 tab Cefuroxime Axetil [Ceftin] 500 mg PO BID #8 tab LORazepam [Ativan] 0.5 mg PO TID PRN #9 tab PRN Reason: Anxiety Discharge Medication List Cefuroxime Axetil [Ceftin] 500 mg PO BID #8 tab 02/19/18 [Rx] Famotidine [Pepcid] 20 mg PO Q12HR #60 tab 02/19/18 [Rx] Folic Acid 1 mg PO DAILY@1200 #30 tab 02/19/18 [Rx] LORazepam [Ativan] 0.5 mg PO TID PRN #9 tab 02/19/18 [Rx] Multivitamins, Thera [Multivitamin (formulary)] 1 each PO DAILY@1200 #30 tab [Rx] Thiamine [Vitamin B-1] 100 mg PO DAILY@1200 #30 tab 02/19/18 [Rx] Follow up Appointment(s)/Referral(s): [facility], Psychiatry [Other] - 1 Week Erik Martin MD [REFERRING] - 3 Days (Please schedule appointment prior to discharge) Ambulatory/Diagnostic Orders: Complete Blood Count w/diff [LAB.AMB] Time Frame: 3 Days, Location: None Selected Activity/Diet/Wound Care/Special Instructions: Legal guardian Final urine culture results to PCP Diet: Cardiac Activity: Limited until follow-up AA meetings
[2018-02-19] MEDS ORDERED: cloNIDine 0.1 MG/24HR PATCH 1 PATCH PATCH TRANSDERM SCH (15:45)
[2018-02-19] MEDS: cefTRIAXone IN SWFI 1,000 MG/10 ML SYRINGE IVP SCH (16:04)
--- NOTE | 2018-02-19 17:25 | P.PN ---
Subjective Progress Note Date: 02/19/18 Progress note being dictated for Dr. Rg Interval history:Luna Logan a 58 y.o.femaleWith no significant PMH who present because of suicidal ideation. i saw pt earlier today at [facility] and Pt states to me she asked her girlfriend Ross to call ambulance today because she was scared that she was going to kill herself. Patient became tearful and started crying . She states that her cheated on her and that is causing big stress for her, this happened about 5 years ago and she got however she still distressed and yesterday for the first time she was thinking of killing herself, and she got scared and so called her girlfriend to call the ambulance to come to emergency room. Patient denies any suicidal plan or attempt, she denies using pills. She states she drinks alcohol every days about 15 bottles of beer. She denies liquor or wine drinking. And she wants also to quit drinking. Also in the emergency room blood tests done today at and she was found to be hyponatremic at 122. glucose 131. Her creatinine was 0.8. Urine toxicology was negative. Alcohol level was high at 307. WBC 5.2. Hemoglobin 11.5. Platelets 176. she got NS 1 Liter at [facility] , after transfer repeat labs at 18:35 shows Na of 133 , i discussed the case with the on -call art glass setter who recommended to place on D5 at 70 ml/hours and recheck Na in 2-3 hours for f/u. Review of Systems CONSTITUTIONAL: No fever, no malaise, no fatigue. HEENT: No recent visual problems or hearing problems. Denied any sore throat. CARDIOVASCULAR: No orthopnea, PND, no palpitations, no syncope. PULMONARY: No shortness of breath, no cough, no hemoptysis. GASTROINTESTINAL: No diarrhea, no nausea, no vomiting, no abdominal pain. Normoactive bowel sounds. NEUROLOGICAL: No headaches, no weakness, no numbness. HEMATOLOGICAL: Denies any bleeding or petechiae. GENITOURINARY: Denies any burning micturition, frequency, or urgency. MUSCULOSKELETAL/RHEUMATOLOGICAL: Denies any joint pain, swelling, or any muscle pain. ENDOCRINE: Denies any polyuria or polydipsia. 02/17/2018 suicide precautions maintained, sitter at bedside. Patient calm and cooperative. Maintained on D5 W with sodium significantly improved, currently 135 .denies lightheadedness dizziness or focal deficits. Denies headache.No seizure activity reported. Good diet intake. Denies nausea vomiting or diarrhea. UA suggestive of possible UTI, asymptomatic, T-max 99.4. Psychiatry consult in place with recommendations pending. Denies chest pain, palpitations or shortness of breath. 02/18/2018 evaluated by psychiatry with recommendations noted-no inpatient psychiatry recommended. Maintained on D5W with sodium continuing to improve. Seizure precautions maintained, no seizure activity reported. Good diet intake. Denies lightheadedness dizziness or focal deficits. No headaches. Denies chest pain, palpitations or shortness of breath. Urine culture pending. Afebrile. 02/19/2018 last night developed aggressive behavior, requiring both Ativan and Haldol. This morning behavior controlled. Sitter maintained at bedside. Placement being secured as per legal guardian. Apparently patient's apartment is not quite ready . Urine culture pending. Afebrile. Sodium WNL. Objective - Vital Signs Vital signs: Vital Signs Temp 97.8 F 02/19/18 15:10 Pulse 90 02/19/18 16:00 Resp 16 02/19/18 16:00 BP 189/98 02/19/18 16:57 Pulse Ox 100 02/19/18 15:10 Intake & Output 02/18/18 02/19/18 02/19/18 18:59 06:59 18:59 Intake Total 940 1340 Balance 940 1340 Weight 53 kg Intake: Intake, IV Titration 700 1100 Amount Dextrose 5% in Water 1, 700 400 000 ml @ 100 mls/hr IV . Q10H [facility] Rx#:[id number] Magnesium Sulfate-D5w Pmx 700 1 gm In Dextrose/Water 1 100ml.bag @ 100 mls/hr IVPB Q1H [facility] Rx#: [id number] Oral 240 240 Other: Voiding Method Toilet Toilet Toilet # Voids 2 2 - Exam General Appearance: Sitting up in bed, Alert and oriented 3, calm, cooperative , making eye contact while conversing HEENT: PERRL, conjunctiva/corneas clear, Neck: Supple, noJVD, no thyromegaly. Chest: Lungs are clear to auscultation bilaterally, respirations unlabored, no tenderness or deformity, Heart: Regular rate and rhythm, S1, S2 normal, no murmur, rub or gallop, pulses are present and symmetric, no S3 of S4. Abdomen: Soft, nontender, bowel sounds active all 4 quadrants, no masses, no organomegaly. Extremities: Normal, atraumatic, no cyanosis or edema , peripheral pulses 2+ bilaterally. Lymph nodes: Cervical, supraclavicular, and axillary nodes normal. Neurologic: Normal, awake and oriented x 3, no focal deficit noted. Psychiatric: Normal with appropriate mood and affect. - Labs CBC & Chem 7: 02/19/18 04:21 02/19/18 04:21 Labs: Abnormal Lab Results - Last 24 Hours (Table) 02/18/18 02/18/18 02/19/18 Range/Units 20:02 22:27 04:21 RBC 3.58 L (3.80-5.40) m/uL Hgb 11.2 L (11.4-16.0) gm/dL Hct 33.9 L (34.0-46.0) % Sodium 135 L (137-145) mmol/L BUN (7-17) mg/dL Glucose (74-99) mg/dL POC Glucose (mg/dL) 131 H (75-99) mg/dL Magnesium (1.6-2.3) mg/dL 02/19/18 02/19/18 02/19/18 Range/Units 04:21 07:46 11:22 RBC (3.80-5.40) m/uL Hgb (11.4-16.0) gm/dL Hct (34.0-46.0) % Sodium (137-145) mmol/L BUN 4 L (7-17) mg/dL Glucose 109 H (74-99) mg/dL POC Glucose (mg/dL) 110 H 138 H (75-99) mg/dL Magnesium 3.0 H (1.6-2.3) mg/dL Microbiology - Last 24 Hours (Table) 02/18/18 15:15 Urine Culture - Preliminary Urine,Suprapubic Assessment and Plan Assessment: -hyponatremia, sodium 122, initially, improving on D5W - alcohol abuse, patient drinks 15 beers daily. -Diabetes mellitus -Possible acute UTI, asymptomatic, culture pending. -Acute metabolic encephalopathy secondary to electrolyte abnormality, alcohol abuse, possible acute UTI, improving Plan: Continue on current medication regime ,monitoring and symptomatic treatment. Elopement precautions. Urine culture pending .Maintain CIWA protocol. Close monitoring of sodium with repeat labs ordered for a.m. .Discharge planning in progress pending placement as per legal guardian. The impression and plan of care has been dictated as directed. : I performed a history and examination of this patient, discussed the same with the dictator. I agree with the dictator's note ,documented as a scribe. Any additional findings or plans will be noted.
[2018-02-19 17:36] LABS: Glucose,Whole Blood 124 mg/dL (75-99)
[2018-02-19] MEDS: amLODIPine 5 MG TAB PO SCH (18:08)
[2018-02-19] MEDS ORDERED: LABETALOL 200 MG TAB PO STA (18:19)
--- NOTE | 2018-02-19 18:22 | PN ---
PROGRESS NOTE Patient is seen for followup for hyponatremia. She is currently comfortable. Patient denies any significant complaints. She remains on D5WITH. Sodium is at 137. Currently patient is not on any fluid restriction. Since she is at least 3 days since her admission, we can allow the serum sodium to rise. As long as the patient is in the hospital we will continue the D5WITH, and if she is ready for discharge we will discontinue the D5W. On examination, blood pressure this morning was 156/84, heart rate 92 per minute. Patient has been agitated. She is requiring a sitter. EXAMINATION OF THE HEART: S1, S2. EXAMINATION OF LUNGS: Bilateral breath sounds are heard. ABDOMEN: Soft, non-tender. Examination of lower extremities shows no evidence of edema. ROLL EXAMINER exam is grossly intact. Patient is agitated. Labs show sodium 137, potassium 4.0, hemoglobin 11.2. ASSESSMENT: 1. Hypovolemic hyponatremia associated with significant decrease osmoles and high intake of beer prior to admission. Serum sodium rapidly increased on initial administration of saline in the ER. Since then, patient has been on D5W and serum sodium has been staying in the 130s range. Patient's D5W was discontinued last night. She has been agitated and requiring a sitter. The fluids were restarted and she has currently agreed for IV fluid administration. Since patient has been here for more than 3 days, we can allow the serum sodium to rise. I will continue with the D5W as long as she is here, and then we can discontinue it over the weekend. 2. Suicidal ideation. 3. Ethanol abuse and delirium tremens, currently maintained on Valium. 4. Hypertension, uncontrolled; on a clonidine patch currently. If blood pressure remains uncontrolled, we can increase the clonidine patch to 0.2 mg. Patient is able to take p.o.; e can add Norvasc. MMODL / IJN: [id number] /
[2018-02-19 20:06] LABS: Glucose,Whole Blood 125 mg/dL (75-99)
[2018-02-20 06:47] LABS: Glucose,Whole Blood 146 mg/dL (75-99)
[2018-02-20 07:04] LABS: Basophils % (A) 0 %; Eosinophils # (A) 0.1 k/uL (0-0.7); Eosinophils % (A) 2 %; HCT 33.2 % (34.0-46.0); Lymphocytes # (A) 1.2 k/uL (1.0-4.8); Lymphocytes % (A) 25 %; MCH 31.3 pg (25.0-35.0); MCV 94.9 fL (80.0-100.0); Mean Platelet Volume 7.6; Monocytes # (A) 0.3 k/uL (0-1.0); Monocytes % (A) 7 %; Neutrophils # (A) 3.2 k/uL (1.3-7.7); Neutrophils % (A) 64 %; Platelet Count 203 k/uL (150-450); RDW 15.1 % (11.5-15.5)
[2018-02-20 07:19] LABS: Anion Gap 11 mmol/L; Calcium 9.7 mg/dL (8.4-10.2); Carbon Dioxide 23 mmol/L (22-30); Chloride 101 mmol/L (98-107); Glucose 145 mg/dL (74-99); Sodium 135 mmol/L (137-145)
[2018-02-20 07:23] LABS: Blood Urea Nitrogen 7 mg/dL (7-17); Potassium 5.3 mmol/L (3.5-5.1)
[2018-02-20] MEDS: FAMOTIDINE 20 MG TAB PO SCH ×2 (08:47→19:48)
[2018-02-20] MEDS: INSULIN ASPART 100 UNIT/ML 1 ML 10 ML VIAL SQ SCH ×4 (08:47→19:45)
[2018-02-20] MEDS: amLODIPine 5 MG TAB PO SCH (08:47)
[2018-02-20] MEDS: THIAMINE 100 MG/ML 2 ML VIAL IM SCH (08:48)
[2018-02-20] MEDS: HEPARIN SODIUM,PORCINE 5,000 UNIT/ML 1 ML VIAL SQ SCH ×2 (08:49→19:48)
[2018-02-20] MEDS: DEXTROSE 5% IN WATER 1,000 ML IV SCH (08:50)
[2018-02-20 12:00] LABS: Glucose,Whole Blood 124 mg/dL (75-99)
[2018-02-20] MEDS: MULTIVITAMINS, THERA 1 EACH TAB PO SCH (12:30)
[2018-02-20] MEDS: FOLIC ACID 1 MG TAB PO SCH (12:30)
[2018-02-20] MEDS: THIAMINE 100 MG TAB PO SCH (12:31)
--- NOTE | 2018-02-20 12:31 | P.PN ---
Subjective Patient is seen in follow-up for hyponatremia. Sodium level stable at 135 today. She is tolerating oral intake. No vomiting or diarrhea. Denies chest pain or shortness of breath. Vital signs are stable. General: The patient appeared well nourished and normally developed. HEENT: Head exam is unremarkable. Neck is without jugular venous distension. LUNGS: Lungs are clear to auscultation and percussion. Breath sounds decreased. HEART: Rate and Rhythm are regular. First and second heart sounds normal. No murmurs, rubs or gallops. ABDOMEN: Abdominal exam reveals normal bowel sounds. Non-tender and non- distended. No evidence of peritonitis. EXTREMITITES: No clubbing, cyanosis, or edema. Objective - Vital Signs Vital signs: Vital Signs Temp 98.2 F 02/20/18 08:00 Pulse 89 02/20/18 08:00 Resp 16 02/20/18 08:00 BP 145/87 02/20/18 08:00 Pulse Ox 100 02/20/18 08:00 Intake & Output 02/19/18 02/20/18 02/20/18 18:59 06:59 18:59 Intake Total 1960 200 Balance 1960 200 Weight 53 kg Intake: Intake, IV Titration 1000 Amount Dextrose 5% in Water 1, 1000 000 ml @ 100 mls/hr IV . Q10H [facility] Rx#:[id number] Oral 960 200 Other: Voiding Method Toilet Toilet # Voids 2 5 1 - Labs CBC & Chem 7: 02/20/18 06:30 02/20/18 06:30 Labs: Abnormal Lab Results - Last 24 Hours (Table) 02/19/18 02/19/18 02/20/18 Range/Units 17:32 20:04 06:30 RBC 3.50 L (3.80-5.40) m/uL Hgb 11.0 L (11.4-16.0) gm/dL Hct 33.2 L (34.0-46.0) % Sodium (137-145) mmol/L Potassium (3.5-5.1) mmol/L Glucose (74-99) mg/dL POC Glucose (mg/dL) 124 H 125 H (75-99) mg/dL 02/20/18 02/20/18 02/20/18 Range/Units 06:30 06:42 11:44 RBC (3.80-5.40) m/uL Hgb (11.4-16.0) gm/dL Hct (34.0-46.0) % Sodium 135 L (137-145) mmol/L Potassium 5.3 H (3.5-5.1) mmol/L Glucose 145 H (74-99) mg/dL POC Glucose (mg/dL) 146 H 124 H (75-99) mg/dL Microbiology - Last 24 Hours (Table) 02/18/18 15:15 Urine Culture - Final Urine,Suprapubic Assessment and Plan Plan: Assessment: 1. Hyponatremia secondary to beer potomania. Resolved. 2. Suicidal ideation. 3. History of alcohol abuse. 4. Benign hypertension. Controlled. Plan: Hep-Lock IV fluids. Encouraged oral intake. Repeat electrolytes in the morning.
[2018-02-20] MEDS: cefTRIAXone IN SWFI 1,000 MG/10 ML SYRINGE IVP SCH (16:17)
[2018-02-20 17:13] LABS: Glucose,Whole Blood 95 mg/dL (75-99)
[2018-02-20 19:45] LABS: Glucose,Whole Blood 109 mg/dL (75-99)
[2018-02-21 06:54] LABS: Glucose,Whole Blood 131 mg/dL (75-99)
[2018-02-21 07:11] LABS: Basophils % (A) 1 %; Eosinophils # (A) 0.1 k/uL (0-0.7); Eosinophils % (A) 2 %; HCT 35.8 % (34.0-46.0); HGB 11.7 gm/dL (11.4-16.0); Lymphocytes # (A) 1.4 k/uL (1.0-4.8); Lymphocytes % (A) 23 %; MCH 31.2 pg (25.0-35.0); MCHC 32.7 g/dL (31.0-37.0); MCV 95.4 fL (80.0-100.0); Mean Platelet Volume 6.9; Monocytes # (A) 0.4 k/uL (0-1.0); Monocytes % (A) 7 %; Neutrophils # (A) 4.1 k/uL (1.3-7.7); Neutrophils % (A) 66 %; Platelet Count 269 k/uL (150-450); RBC 3.75 m/uL (3.80-5.40); RDW 15.3 % (11.5-15.5); WBC 6.2 k/uL (3.8-10.6)
[2018-02-21 07:26] LABS: Calcium 10.1 mg/dL (8.4-10.2); Potassium 4.6 mmol/L (3.5-5.1)
[2018-02-21] MEDS: amLODIPine 5 MG TAB PO SCH (08:30)
[2018-02-21] MEDS: HEPARIN SODIUM,PORCINE 5,000 UNIT/ML 1 ML VIAL SQ SCH ×2 (08:30→22:18)
[2018-02-21] MEDS: FAMOTIDINE 20 MG TAB PO SCH ×2 (08:31→22:19)
[2018-02-21] MEDS: INSULIN ASPART 100 UNIT/ML 1 ML 10 ML VIAL SQ SCH ×4 (08:39→22:26)
[2018-02-21] MEDS: THIAMINE 100 MG/ML 2 ML VIAL IM SCH (08:40)
[2018-02-21 11:30] LABS: Glucose,Whole Blood 136 mg/dL (75-99)
--- NOTE | 2018-02-21 11:59 | P.PN ---
Subjective Patient is seen in follow-up for hyponatremia. Sodium level stable at 137 today. She is tolerating oral intake. No vomiting or diarrhea. Denies chest pain or shortness of breath. Vital signs are stable. General: The patient appeared well nourished and normally developed. HEENT: Head exam is unremarkable. Neck is without jugular venous distension. LUNGS: Lungs are clear to auscultation and percussion. Breath sounds decreased. HEART: Rate and Rhythm are regular. First and second heart sounds normal. No murmurs, rubs or gallops. ABDOMEN: Abdominal exam reveals normal bowel sounds. Non-tender and non- distended. No evidence of peritonitis. EXTREMITITES: No clubbing, cyanosis, or edema. Objective - Vital Signs Vital signs: Vital Signs Temp 98.5 F 02/21/18 08:26 Pulse 90 02/21/18 08:26 Resp 16 02/21/18 08:26 BP 119/71 02/21/18 08:26 Pulse Ox 98 02/21/18 08:26 Intake & Output 02/20/18 02/21/18 02/21/18 18:59 06:59 18:59 Intake Total 1085 1080 236 Balance 1085 1080 236 Intake: Intake, IV Titration 360 Amount Dextrose 5% in Water 1, 360 000 ml @ 100 mls/hr IV . Q10H [facility] Rx#:[id number] Oral 725 1080 236 Other: Voiding Method Toilet # Voids 2 2 2 # Bowel Movements 0 # Emeses 0 - Labs CBC & Chem 7: 02/21/18 06:55 02/21/18 06:55 Labs: Abnormal Lab Results - Last 24 Hours (Table) 02/20/18 02/20/18 02/21/18 Range/Units 11:44 19:44 06:48 RBC (3.80-5.40) m/uL Glucose (74-99) mg/dL POC Glucose (mg/dL) 124 H 109 H 131 H (75-99) mg/dL 02/21/18 02/21/18 02/21/18 Range/Units 06:55 06:55 11:23 RBC 3.75 L (3.80-5.40) m/uL Glucose 130 H (74-99) mg/dL POC Glucose (mg/dL) 136 H (75-99) mg/dL Assessment and Plan Plan: Assessment: 1. Hyponatremia secondary to beer potomania. Resolved. 2. Suicidal ideation. 3. History of alcohol abuse. 4. Benign hypertension. Controlled. Plan: Hep-Lock IV fluids. Encouraged oral intake. Repeat electrolytes in the morning. Stable to be discharged home from nephrology standpoint. She will need to follow-up as an outpatient in the next 2 weeks.
[2018-02-21] MEDS: THIAMINE 100 MG TAB PO SCH (12:41)
[2018-02-21] MEDS: MULTIVITAMINS, THERA 1 EACH TAB PO SCH (12:41)
[2018-02-21] MEDS: FOLIC ACID 1 MG TAB PO SCH (12:41)
[2018-02-21] MEDS: cefTRIAXone IN SWFI 1,000 MG/10 ML SYRINGE IVP SCH (15:29)
--- NOTE | 2018-02-21 17:10 | P.PN ---
Subjective Progress Note Date: 02/20/18 Principal diagnosis: Hyponatremia; UTI; metabolic encephalopathy Luna Logan a 58 y.o.femaleWith no significant PMH who present because of suicidal ideation. i saw pt earlier today at [facility] and Pt states to me she asked her girlfriend Ross to call ambulance today because she was scared that she was going to kill herself. Patient became tearful and started crying . She states that her cheated on her and that is causing big stress for her, this happened about 5 years ago and she got however she still distressed and yesterday for the first time she was thinking of killing herself, and she got scared and so called her girlfriend to call the ambulance to come to emergency room. Patient denies any suicidal plan or attempt , she denies using pills. She states she drinks alcohol every days about 15 bottles of beer. She denies liquor or wine drinking. And she wants also to quit drinking. Also in the emergency room blood tests done today at and she was found to be hyponatremic at 122. glucose 131. Her creatinine was 0.8. Urine toxicology was negative. Alcohol level was high at 307. WBC 5.2. Hemoglobin 11.5. Platelets 176. she got NS 1 Liter at [facility] , after transfer repeat labs at 18:35 shows Na of 133 , i discussed the case with the on -call fence maker who recommended to place on D5 at 70 ml/hours and recheck Na in 2-3 hours for f/u. 02/20/2018; Patient is seen and evaluated in the room at bedside; sedated remains at bedside ; patient is more calm and cooperative; remains on Ativan and Haldol as needed for behavior; patient's placement is pending as requested by legal guardian Objective - Vital Signs Vital signs: Vital Signs Temp 98.2 F 02/20/18 15:00 Pulse 86 02/20/18 15:00 Resp 16 02/20/18 15:00 BP 135/75 02/20/18 15:00 Pulse Ox 100 02/20/18 15:00 Intake & Output 02/19/18 02/20/18 02/20/18 18:59 06:59 18:59 Intake Total 1960 885 Balance 1960 885 Weight 53 kg Intake: Intake, IV Titration 1000 360 Amount Dextrose 5% in Water 1, 1000 360 000 ml @ 100 mls/hr IV . Q10H [facility] Rx#:[id number] Oral 960 525 Other: Voiding Method Toilet Toilet # Voids 2 5 2 - Exam - Constitutional General appearance: Present: average body habitus, cooperative, no acute distress - EENT Eyes: Present: anicteric sclerae, EOMI, PERRLA, normal appearance ENT: Present: hearing grossly normal, normal oropharynx Ears: bilateral: normal - Neck Neck: Present: normal ROM. Absent: lymphadenopathy, rigidity, thyromegaly Carotids: negative: bruit present Thyroid: bilateral: normal size, negative: enlarged, nodule - Respiratory Respiratory: bilateral: CTA, negative: rales, rhonchi, wheezing - Cardiovascular Rhythm: regular Heart sounds: normal: S1, S2 Abnormal Heart Sounds: Absent: systolic murmur, diastolic murmur - Gastrointestinal General gastrointestinal: Present: normal bowel sounds, soft. Absent: distended , organomegaly, tenderness - Genitourinary Genitourinary Comment(s): deferred - Integumentary Integumentary: Present: normal turgor. Absent: jaundiced, rash, ulcer - Neurologic Neurologic: Present: CNII-XII intact. Absent: focal deficits - Musculoskeletal Musculoskeletal: Present: gait normal, strength equal bilaterally - Psychiatric Psychiatric: Present: A&O x's 3, appropriate affect, intact judgment & insight - Labs CBC & Chem 7: 02/21/18 06:55 02/21/18 06:55 Labs: Abnormal Lab Results - Last 24 Hours (Table) 02/19/18 02/20/18 02/20/18 Range/Units 20:04 06:30 06:30 RBC 3.50 L (3.80-5.40) m/uL Hgb 11.0 L (11.4-16.0) gm/dL Hct 33.2 L (34.0-46.0) % Sodium 135 L (137-145) mmol/L Potassium 5.3 H (3.5-5.1) mmol/L Glucose 145 H (74-99) mg/dL POC Glucose (mg/dL) 125 H (75-99) mg/dL 02/20/18 02/20/18 Range/Units 06:42 11:44 RBC (3.80-5.40) m/uL Hgb (11.4-16.0) gm/dL Hct (34.0-46.0) % Sodium (137-145) mmol/L Potassium (3.5-5.1) mmol/L Glucose (74-99) mg/dL POC Glucose (mg/dL) 146 H 124 H (75-99) mg/dL Microbiology - Last 24 Hours (Table) 02/18/18 15:15 Urine Culture - Final Urine,Suprapubic Assessment and Plan Assessment: -hyponatremia, sodium 122, initially, improving on D5W - alcohol abuse, patient drinks 15 beers daily. -Diabetes mellitus -Possible acute UTI, asymptomatic, culture pending. -Acute metabolic encephalopathy secondary to electrolyte abnormality, alcohol abuse, possible acute UTI, improving Plan: Continue on current medication regime ,monitoring and symptomatic treatment. Elopement precautions. Urine culture pending .Maintain CIWA protocol. Close monitoring of sodium with repeat labs ordered for a.m. .Discharge planning in progress pending placement as per legal guardian. Time with Patient: Less than 30
--- NOTE | 2018-02-21 17:11 | P.PN ---
Subjective Progress Note Date: 02/21/18 Principal diagnosis: Hyponatremia; UTI; metabolic encephalopathy Luna Logan a 58 y.o.femaleWith no significant PMH who present because of suicidal ideation. i saw pt earlier today at [facility] and Pt states to me she asked her girlfriend Ross to call ambulance today because she was scared that she was going to kill herself. Patient became tearful and started crying . She states that her cheated on her and that is causing big stress for her, this happened about 5 years ago and she got however she still distressed and yesterday for the first time she was thinking of killing herself, and she got scared and so called her girlfriend to call the ambulance to come to emergency room. Patient denies any suicidal plan or attempt , she denies using pills. She states she drinks alcohol every days about 15 bottles of beer. She denies liquor or wine drinking. And she wants also to quit drinking. Also in the emergency room blood tests done today at and she was found to be hyponatremic at 122. glucose 131. Her creatinine was 0.8. Urine toxicology was negative. Alcohol level was high at 307. WBC 5.2. Hemoglobin 11.5. Platelets 176. she got NS 1 Liter at [facility] , after transfer repeat labs at 18:35 shows Na of 133 , i discussed the case with the on -call clam dredge boat captain who recommended to place on D5 at 70 ml/hours and recheck Na in 2-3 hours for f/u. 02/20/2018; Patient is seen and evaluated in the room at bedside; sedated remains at bedside ; patient is more calm and cooperative; remains on Ativan and Haldol as needed for behavior; patient's placement is pending as requested by legal guardian 02/21/2018 Patient remains stable for discharge pending placement per legal guardian Objective - Vital Signs Vital signs: Vital Signs Temp 98.8 F 02/21/18 14:10 Pulse 83 02/21/18 15:35 Resp 16 02/21/18 14:10 BP 107/72 02/21/18 14:10 Pulse Ox 98 02/21/18 14:10 Intake & Output 02/20/18 02/21/18 02/21/18 18:59 06:59 18:59 Intake Total 1085 1080 473 Balance 1085 1080 473 Intake: Intake, IV Titration 360 Amount Dextrose 5% in Water 1, 360 000 ml @ 100 mls/hr IV . Q10H [facility] Rx#:[id number] Oral 554 [id number] Other: Voiding Method Toilet # Voids 2 2 2 # Bowel Movements 0 2 # Emeses 0 - Exam - Constitutional General appearance: Present: average body habitus, cooperative, no acute distress - EENT Eyes: Present: anicteric sclerae, EOMI, PERRLA, normal appearance ENT: Present: hearing grossly normal, normal oropharynx Ears: bilateral: normal - Neck Neck: Present: normal ROM. Absent: lymphadenopathy, rigidity, thyromegaly Carotids: negative: bruit present Thyroid: bilateral: normal size, negative: enlarged, nodule - Respiratory Respiratory: bilateral: CTA, negative: rales, rhonchi, wheezing - Cardiovascular Rhythm: regular Heart sounds: normal: S1, S2 Abnormal Heart Sounds: Absent: systolic murmur, diastolic murmur - Gastrointestinal General gastrointestinal: Present: normal bowel sounds, soft. Absent: distended , organomegaly, tenderness - Genitourinary Genitourinary Comment(s): deferred - Integumentary Integumentary: Present: normal turgor. Absent: jaundiced, rash, ulcer - Neurologic Neurologic: Present: CNII-XII intact. Absent: focal deficits - Musculoskeletal Musculoskeletal: Present: gait normal, strength equal bilaterally - Psychiatric Psychiatric: Present: A&O x's 3, appropriate affect, intact judgment & insight - Labs CBC & Chem 7: 02/21/18 06:55 02/21/18 06:55 Labs: Abnormal Lab Results - Last 24 Hours (Table) 02/20/18 02/21/18 02/21/18 Range/Units 19:44 06:48 06:55 RBC 3.75 L (3.80-5.40) m/uL Glucose (74-99) mg/dL POC Glucose (mg/dL) 109 H 131 H (75-99) mg/dL 02/21/18 02/21/18 Range/Units 06:55 11:23 RBC (3.80-5.40) m/uL Glucose 130 H (74-99) mg/dL POC Glucose (mg/dL) 136 H (75-99) mg/dL Assessment and Plan Assessment: -hyponatremia, sodium 122, initially, improving on D5W - alcohol abuse, patient drinks 15 beers daily. -Diabetes mellitus -Possible acute UTI, asymptomatic, culture pending. -Acute metabolic encephalopathy secondary to electrolyte abnormality, alcohol abuse, possible acute UTI, improving Plan: Continue on current medication regime ,monitoring and symptomatic treatment. Elopement precautions. Urine culture pending .Maintain CIWA protocol. Close monitoring of sodium with repeat labs ordered for a.m. .Discharge planning in progress pending placement as per legal guardian. Time with Patient: Less than 30
[2018-02-21 17:19] LABS: Glucose,Whole Blood 102 mg/dL (75-99)
[2018-02-21 22:27] LABS: Glucose,Whole Blood 96 mg/dL (75-99)
[2018-02-22] MEDS: INSULIN ASPART 100 UNIT/ML 1 ML 10 ML VIAL SQ SCH ×4 (08:38→20:39)
[2018-02-22] MEDS: FAMOTIDINE 20 MG TAB PO SCH ×2 (08:44→21:19)
[2018-02-22] MEDS: HEPARIN SODIUM,PORCINE 5,000 UNIT/ML 1 ML VIAL SQ SCH ×2 (08:44→20:44)
[2018-02-22] MEDS: amLODIPine 5 MG TAB PO SCH (08:44)
--- NOTE | 2018-02-22 11:09 | P.PN ---
Subjective Patient is seen in follow-up for hyponatremia. Sodium level stable at 137 as of yesterday. She is tolerating oral intake. No vomiting or diarrhea. Denies chest pain or shortness of breath. No active complaints at this time. She is eager to be discharged. Vital signs are stable. General: The patient appeared well nourished and normally developed. HEENT: Head exam is unremarkable. Neck is without jugular venous distension. LUNGS: Lungs are clear to auscultation and percussion. Breath sounds decreased. HEART: Rate and Rhythm are regular. First and second heart sounds normal. No murmurs, rubs or gallops. ABDOMEN: Abdominal exam reveals normal bowel sounds. Non-tender and non- distended. No evidence of peritonitis. EXTREMITITES: No clubbing, cyanosis, or edema. Objective - Vital Signs Vital signs: Vital Signs Temp 98.1 F 02/22/18 08:30 Pulse 99 02/22/18 08:30 Resp 18 02/22/18 08:30 BP 120/61 02/22/18 08:30 Pulse Ox 97 02/22/18 02:00 Intake & Output 02/21/18 02/22/18 02/22/18 18:59 06:59 18:59 Intake Total 473 1620 Balance 473 1620 Intake: Oral 473 1620 Other: # Voids 2 3 # Bowel Movements 2 - Labs CBC & Chem 7: 02/21/18 06:55 02/21/18 06:55 Labs: Abnormal Lab Results - Last 24 Hours (Table) 02/21/18 02/21/18 Range/Units 11:23 17:07 POC Glucose (mg/dL) 136 H 102 H (75-99) mg/dL Assessment and Plan Plan: Assessment: 1. Hyponatremia secondary to beer potomania. Resolved. 2. Suicidal ideation. 3. History of alcohol abuse. 4. Benign hypertension. Controlled. Plan: Hep-Lock IV fluids. Encouraged oral intake. Repeat electrolytes in the morning. Stable to be discharged home from nephrology standpoint. She will need to follow-up as an outpatient in the next 2 weeks.
[2018-02-22] MEDS: THIAMINE 100 MG TAB PO SCH (12:05)
[2018-02-22] MEDS: MULTIVITAMINS, THERA 1 EACH TAB PO SCH (12:05)
[2018-02-22] MEDS: FOLIC ACID 1 MG TAB PO SCH (12:05)
[2018-02-22 13:19] LABS: Glucose,Whole Blood 77 mg/dL (75-99)
[2018-02-22] MEDS: cefTRIAXone IN SWFI 1,000 MG/10 ML SYRINGE IVP SCH (16:10)
[2018-02-22 16:50] LABS: Glucose,Whole Blood 118 mg/dL (75-99)
--- NOTE | 2018-02-22 18:16 | P.PN ---
Subjective Progress Note Date: 02/22/18 Progress note being dictated for Dr. Tillman Interval history:Luna Logan a 58 y.o.femaleWith no significant PMH who present because of suicidal ideation. i saw pt earlier today at [facility] and Pt states to me she asked her girlfriend Ross to call ambulance today because she was scared that she was going to kill herself. Patient became tearful and started crying . She states that her cheated on her and that is causing big stress for her, this happened about 5 years ago and she got however she still distressed and yesterday for the first time she was thinking of killing herself, and she got scared and so called her girlfriend to call the ambulance to come to emergency room. Patient denies any suicidal plan or attempt, she denies using pills. She states she drinks alcohol every days about 15 bottles of beer. She denies liquor or wine drinking. And she wants also to quit drinking. Also in the emergency room blood tests done today at and she was found to be hyponatremic at 122. glucose 131. Her creatinine was 0.8. Urine toxicology was negative. Alcohol level was high at 307. WBC 5.2. Hemoglobin 11.5. Platelets 176. she got NS 1 Liter at [facility] , after transfer repeat labs at 18:35 shows Na of 133 , i discussed the case with the on -call assistant professor of radiology who recommended to place on D5 at 70 ml/hours and recheck Na in 2-3 hours for f/u. Review of Systems CONSTITUTIONAL: No fever, no malaise, no fatigue. HEENT: No recent visual problems or hearing problems. Denied any sore throat. CARDIOVASCULAR: No orthopnea, PND, no palpitations, no syncope. PULMONARY: No shortness of breath, no cough, no hemoptysis. GASTROINTESTINAL: No diarrhea, no nausea, no vomiting, no abdominal pain. Normoactive bowel sounds. NEUROLOGICAL: No headaches, no weakness, no numbness. HEMATOLOGICAL: Denies any bleeding or petechiae. GENITOURINARY: Denies any burning micturition, frequency, or urgency. MUSCULOSKELETAL/RHEUMATOLOGICAL: Denies any joint pain, swelling, or any muscle pain. ENDOCRINE: Denies any polyuria or polydipsia. 02/17/2018 suicide precautions maintained, sitter at bedside. Patient calm and cooperative. Maintained on D5 W with sodium significantly improved, currently 135 .denies lightheadedness dizziness or focal deficits. Denies headache.No seizure activity reported. Good diet intake. Denies nausea vomiting or diarrhea. UA suggestive of possible UTI, asymptomatic, T-max 99.4. Psychiatry consult in place with recommendations pending. Denies chest pain, palpitations or shortness of breath. 02/18/2018 evaluated by psychiatry with recommendations noted-no inpatient psychiatry recommended. Maintained on D5W with sodium continuing to improve. Seizure precautions maintained, no seizure activity reported. Good diet intake. Denies lightheadedness dizziness or focal deficits. No headaches. Denies chest pain, palpitations or shortness of breath. Urine culture pending. Afebrile. 02/19/2018 last night developed aggressive behavior, requiring both Ativan and Haldol. This morning behavior controlled. Sitter maintained at bedside. Placement being secured as per legal guardian. Apparently patient's apartment is not quite ready . Urine culture pending. Afebrile. Sodium WNL. 02/20/2018; Patient is seen and evaluated in the room at bedside; sedated remains at bedside ; patient is more calm and cooperative; remains on Ativan and Haldol as needed for behavior; patient's placement is pending as requested by legal guardian 02/21/2018 Patient remains stable for discharge pending placement per legal guardian 02/22/18 No overnight events. Denies chest pain, palpitations or increased shortness of breath. Good diet intake. Afebrile. Objective - Vital Signs Vital signs: Vital Signs Temp 98.6 F 02/22/18 15:00 Pulse 76 02/22/18 15:00 Resp 16 02/22/18 15:00 BP 109/73 02/22/18 15:00 Pulse Ox 99 02/22/18 15:00 Intake & Output 02/21/18 02/22/18 02/22/18 18:59 06:59 18:59 Intake Total 473 1620 300 Balance 473 1620 300 Intake: Oral 473 1620 300 Other: # Voids 2 3 # Bowel Movements 2 - Exam General Appearance: Sitting up in bed, Alert and oriented 3, conversing, cooperative HEENT: PERRL, conjunctiva/corneas clear, oral mucosa moist Neck: Supple, noJVD, no thyromegaly. Chest: Lungs are clear to auscultation bilaterally, respirations unlabored, no tenderness or deformity, Heart: Regular rate and rhythm, S1, S2 normal, no murmur, rub or gallop, pulses are present and symmetric, no S3 of S4. Abdomen: Soft, nontender, bowel sounds active all 4 quadrants, no masses, no organomegaly. Extremities: Normal, atraumatic, no cyanosis or edema , peripheral pulses 2+ bilaterally. Neurologic: Normal, awake and oriented x 3, no focal deficit noted. - Labs CBC & Chem 7: 02/21/18 06:55 02/21/18 06:55 Labs: Abnormal Lab Results - Last 24 Hours (Table) 02/22/18 Range/Units 16:48 POC Glucose (mg/dL) 118 H (75-99) mg/dL Assessment and Plan Assessment: -hyponatremia, sodium 122, initially, resolved - alcohol abuse, patient drinks 15 beers daily. -Diabetes mellitus -Possible acute UTI, asymptomatic, culture negative. -Acute metabolic encephalopathy secondary to electrolyte abnormality, alcohol abuse, possible acute UTI, improving Plan: Continue on current medication regime ,monitoring and symptomatic treatment. Elopement precautions .Maintain [facility] protocol. house worker general has confirmed placement to be available tomorrow per legal guardian. Discharge planning in progress for tomorrow. The impression and plan of care has been dictated as directed. : I performed a history and examination of this patient, discussed the same with the dictator. I agree with the dictator's note ,documented as a scribe. Any additional findings or plans will be noted.
[2018-02-22 20:39] LABS: Glucose,Whole Blood 109 mg/dL (75-99)
[2018-02-22] MEDS: CEFDINIR 300 MG CAP PO SCH (20:44)
[2018-02-23 06:51] LABS: Glucose,Whole Blood 103 mg/dL (75-99)
[2018-02-23 07:34] LABS: Basophils % (A) 1 %; Eosinophils # (A) 0.1 k/uL (0-0.7); Eosinophils % (A) 2 %; HCT 34.8 % (34.0-46.0); HGB 11.5 gm/dL (11.4-16.0); Lymphocytes # (A) 1.4 k/uL (1.0-4.8); Lymphocytes % (A) 25 %; MCH 31.4 pg (25.0-35.0); MCHC 33.1 g/dL (31.0-37.0); Mean Platelet Volume 6.8; Monocytes # (A) 0.4 k/uL (0-1.0); Monocytes % (A) 7 %; Neutrophils # (A) 3.4 k/uL (1.3-7.7); Neutrophils % (A) 61 %; Platelet Count 340 k/uL (150-450); RBC 3.66 m/uL (3.80-5.40); RDW 15.1 % (11.5-15.5); WBC 5.5 k/uL (3.8-10.6)
[2018-02-23 07:55] VITALS: BP 122/75; PULSE 69; RESP 18; TEMP 97.9
[2018-02-23 07:58] LABS: Anion Gap 11 mmol/L; Blood Urea Nitrogen 13 mg/dL (7-17); Calcium 10.3 mg/dL (8.4-10.2); Carbon Dioxide 22 mmol/L (22-30); Chloride 103 mmol/L (98-107); Glucose 102 mg/dL (74-99); Potassium 4.3 mmol/L (3.5-5.1); Sodium 136 mmol/L (137-145)
[2018-02-23] MEDS: amLODIPine 5 MG TAB PO SCH (08:22)
[2018-02-23] MEDS: CEFDINIR 300 MG CAP PO SCH (08:22)
[2018-02-23] MEDS: HEPARIN SODIUM,PORCINE 5,000 UNIT/ML 1 ML VIAL SQ SCH (08:22)
[2018-02-23] MEDS: FAMOTIDINE 20 MG TAB PO SCH (08:22)
[2018-02-23] MEDS: INSULIN ASPART 100 UNIT/ML 1 ML 10 ML VIAL SQ SCH ×2 (08:23→14:38)
--- NOTE | 2018-02-23 11:03 | P.PN ---
Subjective Patient is seen in follow-up for hyponatremia. Sodium level stable at 136. She is tolerating oral intake. No vomiting or diarrhea. Denies chest pain or shortness of breath. No active complaints at this time. She is eager to be discharged. Vital signs are stable. General: The patient appeared well nourished and normally developed. HEENT: Head exam is unremarkable. Neck is without jugular venous distension. LUNGS: Lungs are clear to auscultation and percussion. Breath sounds decreased. HEART: Rate and Rhythm are regular. First and second heart sounds normal. No murmurs, rubs or gallops. ABDOMEN: Abdominal exam reveals normal bowel sounds. Non-tender and non- distended. No evidence of peritonitis. EXTREMITITES: No clubbing, cyanosis, or edema. Objective - Vital Signs Vital signs: Vital Signs Temp 97.9 F 02/23/18 07:00 Pulse 69 02/23/18 07:00 Resp 18 02/23/18 07:00 BP 122/75 02/23/18 07:00 Pulse Ox 100 02/23/18 07:00 Intake & Output 02/22/18 02/23/18 02/23/18 18:59 06:59 18:59 Intake Total 300 1770 Balance 300 1770 Weight 53 kg Intake: Oral 300 1770 Other: Voiding Method Toilet # Voids 4 - Labs CBC & Chem 7: 02/23/18 07:12 02/23/18 07:12 Labs: Abnormal Lab Results - Last 24 Hours (Table) 02/22/18 02/22/18 02/23/18 Range/Units 16:48 20:39 06:47 RBC (3.80-5.40) m/uL Sodium (137-145) mmol/L Glucose (74-99) mg/dL POC Glucose (mg/dL) 118 H 109 H 103 H (75-99) mg/dL Calcium (8.4-10.2) mg/dL 02/23/18 02/23/18 Range/Units 07:12 07:12 RBC 3.66 L (3.80-5.40) m/uL Sodium 136 L (137-145) mmol/L Glucose 102 H (74-99) mg/dL POC Glucose (mg/dL) (75-99) mg/dL Calcium 10.3 H (8.4-10.2) mg/dL Assessment and Plan Plan: Assessment: 1. Hyponatremia secondary to beer potomania. Resolved. 2. Suicidal ideation. 3. History of alcohol abuse. 4. Benign hypertension. Controlled. 5. Hypercalcemia. This is likely related to multivitamins. Plan: Remains off IV fluids. Encouraged oral intake. Repeat electrolytes in the morning. Check PTH and vitamin D. Stable to be discharged home from nephrology standpoint. She will need to follow-up as an outpatient in the next 2 weeks.
[2018-02-23 11:24] LABS: Glucose,Whole Blood 88 mg/dL (75-99)
[2018-02-23] MEDS: MULTIVITAMINS, THERA 1 EACH TAB PO SCH (12:59)
[2018-02-23] MEDS: THIAMINE 100 MG TAB PO SCH (14:39)
[2018-02-23] MEDS: FOLIC ACID 1 MG TAB PO SCH (14:39)
[2018-02-23 16:29] LABS: Vitamin D 25 Hydroxy 15.6 ng/mL (30.0-100.0)
--- NOTE | 2018-02-23 18:42 | P.DS ---
Providers Date of admission: 02/16/18 19:03 Expected date of discharge: 02/23/18 Attending physician: Keyla Tillman Consults: 02/16/18 19:06 Consult Physician Routine Consulting Provider: Kamille Dominguez Consult Reason/Comments: metabolic derangment Do you want consulting provider notified?: Yes, Notify in am 02/16/18 21:36 Consult Physician Routine Consulting Provider: Daniella Ramírez Consult Reason/Comments: suicidal ideation Do you want consulting provider notified?: Yes Primary care physician: Stated None [facility] Course: Final Diagnoses: -hyponatremia,resolved - alcohol abuse, patient drinks 15 beers daily. -Diabetes mellitus -Possible acute UTI, asymptomatic, culture negative, completed antibx treatment. -Acute metabolic encephalopathy secondary to electrolyte abnormality, alcohol abuse, possible acute UTI, improving Hospital course:Luna Logan a 58 y.o.femaleWith no significant PMH who present because of suicidal ideation. i saw pt earlier today at [facility] and Pt states to me she asked her girlfriend Ross to call ambulance today because she was scared that she was going to kill herself. Patient became tearful and started crying . She states that her cheated on her and that is causing big stress for her, this happened about 5 years ago and she got however she still distressed and yesterday for the first time she was thinking of killing herself, and she got scared and so called her girlfriend to call the ambulance to come to emergency room. Patient denies any suicidal plan or attempt, she denies using pills. She states she drinks alcohol every days about 15 bottles of beer. She denies liquor or wine drinking. And she wants also to quit drinking. Also in the emergency room blood tests done today at 15 16 and she was found to be hyponatremic at 122. glucose 131. Her creatinine was 0.8. Urine toxicology was negative. Alcohol level was high at 307. WBC 5.2. Hemoglobin 11.5. Platelets 176. she got NS 1 Liter at [facility] , after transfer repeat labs at 18:35 shows Na of 133 , i discussed the case with the on -call crop ranch hand who recommended to place on D5 at 70 ml/hours and recheck Na in 2-3 hours for f/u. Seizure & Suicide precautions maintained with sitter at bedside. Maintained on D5 W ,IV fluid hydration, CIWA protocol .Sodium currently 136.significant clinical improvement .Evaluated by psychiatry with recommendations noted-no inpatient psychiatry recommended. pulley worker discussed with guardian, increased structured environment /living arrangement such as an AFC, sober living house. Cleared by all consults for discharge. Patient is being discharged to legal guardian, in a stable condition with guarded prognosis. Exam General Appearance: Alert and oriented 3, calm, cooperative, making eye contact while conversing Chest: Lungs are clear to auscultation bilaterally, respirations unlabored, no tenderness or deformity, Heart: Regular rate and rhythm, S1, S2 normal, no murmur, rub or gallop, pulses are present and symmetric, no S3 of S4. Abdomen: Soft, nontender, bowel sounds active all 4 quadrants, no masses, no organomegaly. Neurologic: no focal deficit noted. The impression and plan of care has been dictated as directed. : I performed a history and examination of this patient, discussed the same with the dictator. I agree with the dictator's note ,documented as a scribe. Any additional findings or plans will be noted. Time taken: 35 minutes Patient Condition at Discharge: Stable Plan - Discharge Summary Discharge Rx Participant: Yes New Discharge Prescriptions: New Famotidine [Pepcid] 20 mg PO Q12HR #60 tab Folic Acid 1 mg PO DAILY@1200 #30 tab Multivitamins, Thera [Multivitamin (formulary)] 1 each PO DAILY@1200 #30 tab Thiamine [Vitamin B-1] 100 mg PO DAILY@1200 #30 tab LORazepam [Ativan] 0.5 mg PO TID PRN #9 tab PRN Reason: Anxiety amLODIPine [Norvasc] 5 mg PO DAILY #30 tab cloNIDine HCL [Catapres] 0.1 mg PO TID #90 tab Discharge Medication List Famotidine [Pepcid] 20 mg PO Q12HR #60 tab 02/19/18 [Rx] Folic Acid 1 mg PO DAILY@1200 #30 tab 02/19/18 [Rx] LORazepam [Ativan] 0.5 mg PO TID PRN #9 tab 02/19/18 [Rx] Multivitamins, Thera [Multivitamin (formulary)] 1 each PO DAILY@1200 #30 tab [Rx] Thiamine [Vitamin B-1] 100 mg PO DAILY@1200 #30 tab 02/19/18 [Rx] amLODIPine [Norvasc] 5 mg PO DAILY #30 tab 02/23/18 [Rx] cloNIDine HCL [Catapres] 0.1 mg PO TID #90 tab 02/23/18 [Rx] Follow up Appointment(s)/Referral(s): Dr. FELECIA Psychiatry [Other] - 1 Week Erik Martin MD [REFERRING] - 3 Days (Please schedule appointment prior to discharge. Not accepting new patients) Ramon Pereira DO [STAFF PHYSICIAN] - 2 Weeks Ambulatory/Diagnostic Orders: Complete Blood Count w/diff [LAB.AMB] Time Frame: 3 Days, Location: None Selected Patient Instructions/Handouts: Alcohol Intoxication (DC), Abuse of Alcohol (DC) , Alcohol Withdrawal (DC) Activity/Diet/Wound Care/Special Instructions: Legal guardian arranging structured environment Final urine culture results to PCP Diet: Cardiac Activity: Limited until follow-up No etoh. AA meetings Discharge Disposition: HOME SELF-CARE
[2018-02-24] MEDS ORDERED: cloNIDine HCL 0.1 MG TAB PO SCH (09:00)
== END 2018-02-23 15:30 | disposition home or self-care (01) | DRG 640 ==
LOC: EC 18:22 → 3SUR 19:03
PROVIDERS: ADMIT Internal Medicine; ATTEND Internal Medicine
DX: E87.1 Hypo-osmolality and hyponatremia (principal); G93.41 Metabolic encephalopathy; R45.851 Suicidal ideations; N39.0 Urinary tract infection, site not specified; F10.10 Alcohol abuse, uncomplicated; Y90.6 Blood alcohol level of 120-199 mg/100 ml; Z62.810 Personal history of physical and sexual abuse in childhood; I10 Essential (primary) hypertension; E87.6 Hypokalemia; E83.52 Hypercalcemia; Z90.49 Acquired absence of other specified parts of digestive tract; Z91.410 Personal history of adult physical and sexual abuse; Z87.891 Personal history of nicotine dependence; Z88.2 Allergy status to sulfonamides
CPT/HCPCS: 36415; 80048; 80320; 81001; 82075; 82306; 83036; 83735; 83935; 83970; 84295; 84300; 85025; 87086; 93005; 99285

== ENCOUNTER 2018-02-24 20:23 | Emergency (ER) | payer BC, OTHER ==
--- NOTE | 2018-02-24 21:48 | ED ---
Alcohol HPI - General Chief Complaint: Alcohol Stated Complaint: sore throat Time Seen by Provider: 02/24/18 20:24 Source: patient, EMS Mode of arrival: EMS Limitations: no limitations - History of Present Illness Initial Comments: This patient is a 58-year-old woman who presents after a friend of hers brought her here to be seen about alcohol use. Patient had just been released from the hospital after nearly week's stay for issues related to chronic alcohol use. When I go to see the patient, she is without complaints. The patient's friend is no longer here. The patient denies any pain or dyspnea. She denies any trauma. She requests to go home. The patient is not having any suicidal or homicidal ideation. She does admit to drinking a number of bud light beers. She states that she usually drinks about a 15 pack per day. This is been going on for many years now. 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) Previous Visits for Alcohol Intoxication?: Yes Recent Trauma: No Associated Symptoms: denies other symptoms Chronic Alcohol Use: Yes - Related Data Previous Rx's Medication Instructions Recorded Famotidine [Pepcid] 20 mg PO Q12HR #60 tab 02/19/18 Folic Acid 1 mg PO DAILY@1200 #30 tab 02/19/18 LORazepam [Ativan] 0.5 mg PO TID PRN #9 tab 02/19/18 Multivitamins, Thera [Multivitamin 1 each PO DAILY@1200 #30 tab 02/19/18 (formulary)] Thiamine [Vitamin B-1] 100 mg PO DAILY@1200 #30 tab 02/19/18 amLODIPine [Norvasc] 5 mg PO DAILY #30 tab 02/23/18 cloNIDine HCL [Catapres] 0.1 mg PO TID #90 tab 02/23/18 Allergies Allergy/AdvReac Type Severity Reaction Status Date / Time Sulfa (Sulfonamide Allergy Rash/Hives Verified 02/24/18 20:53 Antibiotics) Review of Systems ROS Statement: Those systems with pertinent positive or pertinent negative responses have been documented in the HPI. ROS Other: All systems not noted in ROS Statement are negative. 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, hypogylcemia, short term memory loss History of Any Multi-Drug Resistant Organisms: None Reported Past Surgical History: Appendectomy Past Anesthesia/Blood Transfusion Reactions: Previous Problems w/ Anesthesia Past Psychological History: No Psychological Hx Reported Smoking Status: Never smoker Past Alcohol Use History: Abuse, Daily, Heavy Past Drug Use History: None Reported - Past Family History Father Family Medical History: Diabetes Mellitus Additional Family Medical History / Comment(s): ETOH Mother Additional Family Medical History / Comment(s): Heart disease General Exam Limitations: no limitations General appearance: alert, in no apparent distress Head exam: Present: atraumatic, normocephalic Eye exam: Present: normal appearance. Absent: scleral icterus, conjunctival injection ENT exam: Present: mucous membranes dry Neck exam: Present: normal inspection Respiratory exam: Present: normal lung sounds bilaterally. Absent: respiratory distress, wheezes, rales, rhonchi, stridor Cardiovascular Exam: Present: regular rate, normal rhythm, normal heart sounds. Absent: systolic murmur, diastolic murmur, rubs, gallop GI/Abdominal exam: Present: soft. Absent: distended, tenderness, guarding, rebound, mass Neurological exam: Present: alert, oriented X3, normal gait Psychiatric exam: Present: normal affect, normal mood. Absent: homicidal ideation, suicidal ideation Skin exam: Present: warm, dry, intact, normal color. Absent: rash Course Vital Signs 02/24/18 20:30 Temperature 96.5 F L Pulse Rate 89 Respiratory 18 Rate Blood Pressure 130/76 O2 Sat by Pulse 99 Oximetry Medical Decision Making - Medical Decision Making Patient is a 58-year-old woman with chronic alcohol use. She does admit to drinking earlier today though clinically she is not manifesting intoxication. The patient case is discussed with her legal guardian, Katelyn Flores ([phone]), who states that as she has gone back to drinking after her last admission , they probably are going to have to put her on a substance abuse order. They state that until that time the patient may be discharged to home and they'll work to get her admitted into a rehab facility. The patient is clinically stable for discharge today. Disposition Clinical Impression: Alcohol intoxication Disposition: HOME SELF-CARE Condition: Fair Instructions: Alcohol Intoxication (ED) Is patient prescribed a controlled substance at d/c from ED?: No Referrals: Jean Marie Melton MD [Primary Care Provider] - 1-2 days
[2018-02-24 22:05] VITALS: BP 126/68; PULSE 84; RESP 16; TEMP 97.5
== END 2018-02-24 22:00 | disposition home or self-care (01) ==
LOC: EC 20:23
DX: F10.129 Alcohol abuse with intoxication, unspecified (principal); Z88.2 Allergy status to sulfonamides; Z81.1 Family history of alcohol abuse and dependence
CPT/HCPCS: 99282

== ENCOUNTER 2024-02-14 22:42 | Emergency (ER) | payer MEDICARE ==
[2024-02-14 23:16] VITALS: TEMP 98.6
--- NOTE | 2024-02-15 02:29 | XR ---
EXAM: XR Chest, 2 Views CLINICAL HISTORY: ITS.REASON XR Reason: cough TECHNIQUE: Frontal and lateral views of the chest. COMPARISON: No relevant prior studies available. FINDINGS: Lungs: Unremarkable. No consolidation. Pleural space: Unremarkable. No pneumothorax. Heart: Unremarkable. No cardiomegaly. Mediastinum: Unremarkable. Normal mediastinal contour. Bones/joints: Unremarkable. No acute fracture. IMPRESSION: No consolidation.
--- NOTE | 2024-02-15 02:33 | ED ---
URI HPI - General Chief Complaint: Upper Respiratory Infection Stated Complaint: ABD Pain, Cough Time Seen by Provider: 02/15/24 00:31 Source: patient Mode of arrival: ambulatory Limitations: no limitations - History of Present Illness Initial Comments: 64-year-old female presenting with chief complaint of cough. Cough has been ongoing for 3 days. Patient admits to frontal headache. She also complains of rib pain which she believes is due to her coughing. No difficulty breathing. No nausea vomiting or abdominal pain. No fever. Dry cough. Denies smoking or history of asthma or COPD. Admits to congestion. Denies sore throat. - Related Data Previous Rx's Medication Instructions Recorded Famotidine [Pepcid] 20 mg PO Q12HR #60 tab 02/19/18 Folic Acid 1 mg PO DAILY@1200 #30 tab 02/19/18 LORazepam [Ativan] 0.5 mg PO TID PRN #9 tab 02/19/18 Multivitamins, Thera [Multivitamin 1 each PO DAILY@1200 #30 tab 02/19/18 (formulary)] Thiamine [Vitamin B-1] 100 mg PO DAILY@1200 #30 tab 02/19/18 amLODIPine [Norvasc] 5 mg PO DAILY #30 tab 02/23/18 cloNIDine HCL [Catapres] 0.1 mg PO TID #90 tab 02/23/18 Benzonatate [Tessalon Perles] 100 mg PO TID PRN #9 capsule 02/15/24 Allergies Allergy/AdvReac Type Severity Reaction Status Date / Time Sulfa (Sulfonamide Allergy Rash/Hives Verified 02/14/24 23:16 Antibiotics) Review of Systems ROS Statement: Those systems with pertinent positive or pertinent negative responses have been documented in the HPI. ROS Other: All systems not noted in ROS Statement are negative. 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, hypogylcemia, short term memory loss History of Any Multi-Drug Resistant Organisms: None Reported Past Surgical History: Appendectomy Past Anesthesia/Blood Transfusion Reactions: Previous Problems w/ Anesthesia Past Psychological History: No Psychological Hx Reported Past Alcohol Use History: Abuse, Daily, Heavy Past Drug Use History: None Reported - Past Family History Father Family Medical History: Diabetes Mellitus Additional Family Medical History / Comment(s): ETOH Mother Additional Family Medical History / Comment(s): Heart disease General Exam Limitations: no limitations General appearance: alert, in no apparent distress Head exam: Present: atraumatic, normocephalic Eye exam: Present: normal appearance, EOMI ENT exam: Present: normal oropharynx, mucous membranes moist Neck exam: Present: normal inspection. Absent: meningismus Respiratory exam: Present: normal lung sounds bilaterally. Absent: respiratory distress, wheezes, rales, rhonchi, stridor Cardiovascular Exam: Present: regular rate, normal rhythm, normal heart sounds. Absent: systolic murmur, diastolic murmur, rubs, gallop, clicks Neurological exam: Present: alert, oriented X3 Psychiatric exam: Present: normal affect, normal mood Skin exam: Present: warm, dry Course Vital Signs 02/14/24 02/15/24 02/15/24 23:11 00:40 02:42 Temperature 98.6 F Pulse Rate 87 76 Respiratory 20 20 18 Rate Blood Pressure 145/82 164/96 O2 Sat by Pulse 98 100 Oximetry Medical Decision Making - Medical Decision Making Was pt. sent in by a medical professional or institution (, PA, MECHANICAL ASSEMBLY TECHNICIAN, urgent care, hospital, or penitentiary...) When possible be specific @ -No Did you speak to anyone other than the patient for history (EMS, parent, family, police, friend...)? What history was obtained from this source @ -No Did you review nursing and triage notes (agree or disagree)? Why? @ -I reviewed and agree with nursing and triage notes Were old charts reviewed (outside hosp., previous admission, EMS record, old EKG, old radiological studies, urgent care reports/EKG's, penitentiary records)? Report findings @ -No old charts were reviewed Differential Diagnosis (chest pain, altered mental status, abdominal pain women, abdominal pain men, vaginal bleeding, weakness, fever, dyspnea, syncope, headache, dizziness, GI bleed, back pain, seizure, CVA, palpatations, mental health, musculoskeletal)? @ -MDM Differential Dyspnea: Coronary syndrome, arrhythmia, tamponade, asthma, COPD, pulmonary embolism, pneumonia, pneumothorax, pulmonary effusion, anaphylaxis, diabetic ketoacidosis, flailed chest, pulmonary contusion, diaphragmatic rupture, anemia, neuromuscular this is not meant to be an all-inclusive list. EKG interpreted by me (3pts min.). @ -As above X-rays interpreted by me (1pt min.). @ -X-ray shows no consolidation. No pneumothorax. No cardiomegaly. Unremarkable bones/joints CT interpreted by me (1pt min.). @ -None done U/S interpreted by me (1pt. min.). @ -None done What testing was considered but not performed or refused? (CT, X-rays, U/S, labs)? Why? @ -None What meds were considered but not given or refused? Why? @ -None Did you discuss the management of the patient with other professionals (professionals i.e. Dr., PA, MECHANICAL ASSEMBLY TECHNICIAN, lab, RT, psych nurse, social services specialist, senior functional analyst, teacher, mechanical engineering officer, caseworker intake)? Give summary @ -No Was smoking cessation discussed for >3mins.? @ -No Was critical care preformed (if so, how long)? @ -No Were there social determinants of health that impacted care today? How? (Homelessness, low income, unemployed, alcoholism, drug addiction, transportation, low edu. Level, literacy, decrease access to med. care, fpc, rehab)? @ -No Was there de-escalation of care discussed even if they declined (Discuss DNR or withdrawal of care, Hospice)? DNR status @ -No What co-morbidities impacted this encounter? (DM, HTN, Smoking, COPD, CAD, Cancer, CVA, ARF, Chemo, Hep., AIDS, mental health diagnosis, sleep apnea, morbid obesity)? @ -None Was patient admitted / discharged? Hospital course, mention meds given and route, prescriptions, significant lab abnormalities, going to OR and other pertinent info. @ -64-year-old female presenting with chief complaint of cough. Heart and lungs are clear to auscultation. Negative for influenza, RSV, COVID. Chest x- ray shows no acute process. Patient is educated on today's findings. Prescribed Tessalon Perles. Discharged home. Follow-up with PCP. Report back to ER with any new or worsening symptoms. Discussed return parameters and answered all questions. Patient conveyed verbal understanding and agreed to the plan. I discussed this case in detail with my attending Dr. Christine Undiagnosed new problem with uncertain prognosis? @ -No Drug Therapy requiring intensive monitoring for toxicity (Heparin, Nitro, Insulin, Cardizem)? @ -No Were any procedures done? @ -No Diagnosis/symptom? @ -URI Acute, or Chronic, or Acute on Chronic? @ -Acute Uncomplicated (without systemic symptoms) or Complicated (systemic symptoms)? @ -Uncomplicated Side effects of treatment? @ -No Exacerbation, Progression, or Severe Exacerbation? @ -No Poses a threat to life or bodily function? How? (Chest pain, [place], [place], pneumonia, PE, COPD, DKA, ARF, appy, cholecystitis, CVA, Diverticulitis, Homicidal, Suicidal, threat to staff... and all critical care pts) @ -No - Lab Data Lab Results 02/15/24 Range/Units 01:05 Influenza Type A (PCR) Not Detected (Not Detectd) Influenza Type B (PCR) Not Detected (Not Detectd) RSV (PCR) Not Detected (Not Detectd) SARS-CoV-2 (PCR) Not Detected (Not Detectd) Disposition Clinical Impression: Upper respiratory tract infection Disposition: HOME SELF-CARE Condition: Good Instructions (If sedation given, give patient instructions): Upper Respiratory Infection (ED) Additional Instructions: Follow-up with PCP. Report back to ER with any new or worsening symptoms. Prescriptions: Benzonatate [Tessalon Perles] 100 mg PO TID PRN #9 capsule PRN Reason: Cough Is patient prescribed a controlled substance at d/c from ED?: No Referrals: Jean Marie Melton MD [Primary Care Provider] - 1-2 days Time of Disposition: 02:33
[2024-02-15 02:43] VITALS: BP 164/96; PULSE 76; RESP 18
== END 2024-02-15 03:00 | disposition home or self-care (01) ==
LOC: EC 22:42
DX: J06.9 Acute upper respiratory infection, unspecified (principal); Z88.2 Allergy status to sulfonamides
CPT/HCPCS: 71046; 87636; 99284

== ENCOUNTER 2024-09-25 22:46 | Emergency (ER) | payer MEDICARE, OTHER ==
[2024-09-25 22:59] VITALS: TEMP 97.6
--- NOTE | 2024-09-25 23:41 | ED ---
General Adult HPI - General Source: patient, police, RN notes reviewed Mode of arrival: EMS <Marci Hernandez - Last Filed: 09/26/24 04:00> <Jam Fowler - Last Filed: 09/26/24 11:46> - General Chief complaint: Alcohol Stated complaint: ETOH Time Seen by Provider: 09/25/24 23:29 - History of Present Illness Initial comments: This is a 64-year-old female presenting to emergency department from police transport with concerns for alcohol intoxication. Patient is unaware why she was brought to the emergency department. She is endorsing suicidal ideation with no current plan. Denies homicidal ideation or auditory visual hallucinations. Patient states that she normally drinks roughly 6 24 ounce beers per day and her last drink was less than 1 hour ago. She denies history of alcohol withdrawal seizures or alcohol withdrawal. Patient is quite tearful stating that she wants help and would like to go to rehab. She is denying nausea, chest pain, difficulty breathing, abdominal pain, hallucinations. (Marci Hernandez) - Related Data Previous Rx's Medication Instructions Recorded Famotidine [Pepcid] 20 mg PO Q12HR #60 tab 02/19/18 Folic Acid 1 mg PO DAILY@1200 #30 tab 02/19/18 LORazepam [Ativan] 0.5 mg PO TID PRN #9 tab 02/19/18 Multivitamins, Thera [Multivitamin 1 each PO DAILY@1200 #30 tab 02/19/18 (formulary)] Thiamine [Vitamin B-1] 100 mg PO DAILY@1200 #30 tab 02/19/18 amLODIPine [Norvasc] 5 mg PO DAILY #30 tab 02/23/18 cloNIDine HCL [Catapres] 0.1 mg PO TID #90 tab 02/23/18 Benzonatate [Tessalon Perles] 100 mg PO TID PRN #9 capsule 02/15/24 Allergies Allergy/AdvReac Type Severity Reaction Status Date / Time Sulfa (Sulfonamide Allergy Rash/Hives Verified 02/14/24 23:16 Antibiotics) Review of Systems ROS Other: All systems not noted in ROS Statement are negative. <Marci Hernandez - Last Filed: 09/26/24 04:00> ROS Other: All systems not noted in ROS Statement are negative. <Jam Fowler - Last Filed: 09/26/24 11:46> ROS Statement: Those systems with pertinent positive or pertinent negative responses have been documented in the HPI. 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, hypogylcemia, short term memory loss History of Any Multi-Drug Resistant Organisms: None Reported Past Surgical History: Appendectomy Past Anesthesia/Blood Transfusion Reactions: Previous Problems w/ Anesthesia Past Psychological History: No Psychological Hx Reported Smoking Status: Never smoker Past Alcohol Use History: Abuse, Daily, Heavy Past Drug Use History: None Reported - Past Family History Father Family Medical History: Diabetes Mellitus Additional Family Medical History / Comment(s): ETOH Mother Additional Family Medical History / Comment(s): Heart disease <Marci Hernandez - Last Filed: 09/26/24 04:00> General Exam General appearance: alert, appears intoxicated Eye exam: Present: normal appearance, PERRL, EOMI. Absent: scleral icterus, conjunctival injection, periorbital swelling Neck exam: Present: normal inspection. Absent: tenderness, meningismus, lymphadenopathy Respiratory exam: Present: normal lung sounds bilaterally. Absent: respiratory distress, wheezes, rales, rhonchi, stridor Cardiovascular Exam: Present: regular rate, normal rhythm, normal heart sounds. Absent: systolic murmur, diastolic murmur, rubs, gallop, clicks GI/Abdominal exam: Present: soft, normal bowel sounds. Absent: distended, tenderness, guarding, rebound, rigid Extremities exam: Present: normal inspection, full ROM, normal capillary refill. Absent: tenderness, pedal edema, joint swelling, calf tenderness <Marci Hernandez - Last Filed: 09/26/24 04:00> Course Vital Signs 09/25/24 09/26/24 09/26/24 22:52 04:32 07:34 Temperature 97.6 F Pulse Rate 84 88 68 Respiratory 18 18 16 Rate Blood Pressure 164/105 132/78 120/60 O2 Sat by Pulse 95 98 98 Oximetry 09/26/24 09:43 Temperature Pulse Rate 68 Respiratory 16 Rate Blood Pressure 118/60 O2 Sat by Pulse 98 Oximetry Medical Decision Making - Lab Data Result diagrams: 09/26/24 00:18 09/26/24 00:18 <Marci Hernandez - Last Filed: 09/26/24 04:00> - Lab Data Result diagrams: 09/26/24 00:18 09/26/24 00:18 <Julio Fowlere - Last Filed: 09/26/24 11:46> - Medical Decision Making Was pt. sent in by a medical professional or institution (, [facility], PROFESSOR OF ENVIRONMENTAL ENGINEERING, urgent care, hospital, or jail...) When possible be specific @ -[No] Did you speak to anyone other than the patient for history (EMS, parent, family, police, friend...)? What history was obtained from this source @ -[No] Did you review nursing and triage notes (agree or disagree)? Why? @ -[I reviewed and agree with nursing and triage notes] Were old charts reviewed (outside hosp., previous admission, EMS record, old EKG, old radiological studies, urgent care reports/EKG's, jail records)? Report findings @ -[No old charts were reviewed] Differential Diagnosis (chest pain, altered mental status, abdominal pain women, abdominal pain men, vaginal bleeding, weakness, fever, dyspnea, syncope, headache, dizziness, GI bleed, back pain, seizure, CVA, palpatations, mental health, musculoskeletal)? @ -Differential Altered Mental Status: Hypoglycemia, DKA, hypercapnia, ETOH, overdose, CO poisoning, trauma, myxedema coma, HTN encephalopathy, infection, encephalitis, psychosis, intercranial hemorrhage, hepatic encephalopathy, meningitis, CVA, this is not meant to be an all-inclusive list EKG interpreted by me (3pts min.). @ -None X-rays interpreted by me (1pt min.). @ -[None done] CT interpreted by me (1pt min.). @ -[None done] U/S interpreted by me (1pt. min.). @ -[None done] What testing was considered but not performed or refused? (CT, X-rays, U/S, labs)? Why? @ -[None] What meds were considered but not given or refused? Why? @ -[None] Did you discuss the management of the patient with other professionals (professionals i.e. , [facility], PROFESSOR OF ENVIRONMENTAL ENGINEERING, lab, RT, psych nurse, social media content manager, stuntman, teacher, loan service officer, mental health case manager)? Give summary @ -[No] Was smoking cessation discussed for >3mins.? @ -[No] Was critical care preformed (if so, how long)? @ -[No] Were there social determinants of health that impacted care today? How? (H omelessness, low income, unemployed, alcoholism, drug addiction, transportation, low edu. Level, literacy, decrease access to med. care, usp, rehab)? @ -[No] Was there de-escalation of care discussed even if they declined (Discuss DNR or withdrawal of care, Hospice)? DNR status @ -[No] What co-morbidities impacted this encounter? (DM, HTN, Smoking, COPD, CAD, Cancer, CVA, ARF, Chemo, Hep., AIDS, mental health diagnosis, sleep apnea, morbid obesity)? @ -[None] Was patient admitted / discharged? Hospital course, mention meds given and route, prescriptions, significant lab abnormalities, going to OR and other pertinent info. @ -64 female presenting for alcohol intoxication. Patient appears to be intoxicated during examination. Patient is quite tearful stating that she has had thoughts of wanting to harm herself. Labs remarkable for serum alcohol level of 286. Patient is signed out to my attending, Dr. Barlow, for impending EPS evaluation after patient is sober. Undiagnosed new problem with uncertain prognosis? @ -[No] Drug Therapy requiring intensive monitoring for toxicity (Heparin, Nitro, Insulin, Cardizem)? @ -[No] Were any procedures done? @ -[No] Diagnosis/symptom? @ -[default] Acute, or Chronic, or Acute on Chronic? @ -[default] Uncomplicated (without systemic symptoms) or Complicated (systemic symptoms)? @ -[default] Side effects of treatment? @ -[No] Exacerbation, Progression, or Severe Exacerbation? @ -[No] Poses a threat to life or bodily function? How? (Chest pain, [place], [place], pneumonia, PE, COPD, DKA, ARF, appy, cholecystitis, CVA, Diverticulitis, Homicidal, Suicidal, threat to staff... and all critical care pts) @ -[No] (Stieler,Marci) Was patient admitted / discharged? Hospital course, mention meds given and r oute, prescriptions, significant lab abnormalities, going to OR and other pertinent info. @ -Patient was evaluated by EPS after she sobered up. Patient initially stated she was suicidal. EPS evaluated her and in consultation with the psychiatrist determined the patient could go home with a safety plan. Undiagnosed new problem with uncertain prognosis? @ -No Drug Therapy requiring intensive monitoring for toxicity (Heparin, Nitro, Insulin, Cardizem)? @ -No Were any procedures done? @ -No Diagnosis/symptom? @ -Alcohol intoxication Acute, or Chronic, or Acute on Chronic? @ -Acute Uncomplicated (without systemic symptoms) or Complicated (systemic symptoms)? @ -Complicated Side effects of treatment? @ -No Exacerbation, Progression, or Severe Exacerbation? @ -No Poses a threat to life or bodily function? How? (Chest pain, [place], [place], pneumonia, PE, COPD, DKA, ARF, appy, cholecystitis, CVA, Diverticulitis, Homicidal, Suicidal, threat to staff... and all critical care pts) @ -No Diagnosis/symptom? @ -Situational depression Acute, or Chronic, or Acute on Chronic? @ -Acute Uncomplicated (without systemic symptoms) or Complicated (systemic symptoms)? @ -Complicated Side effects of treatment? @ -None Exacerbation, Progression, or Severe Exacerbation] @ -No Poses a threat to life or bodily function? @ -No (Jam Fowler) - Lab Data Lab Results 09/25/24 09/26/24 09/26/24 Range/Units 23:12 00:18 00:18 WBC 5.1 (3.8-10.6) k/uL RBC 4.31 (3.80-5.40) m/uL Hgb 13.4 (11.4-16.0) gm/dL Hct 39.3 (34.0-46.0) % MCV 91.3 (80.0-100.0) fL MCH 31.1 (25.0-35.0) pg MCHC 34.1 (31.0-37.0) g/dL RDW 13.8 (11.5-15.5) % Plt Count 303 (150-450) k/uL MPV 6.5 Neutrophils % 60 % Lymphocytes % 30 % Monocytes % 5 % Eosinophils % 1 % Basophils % 1 % Neutrophils # 3.1 (1.3-7.7) k/uL Lymphocytes # 1.5 (1.0-4.8) k/uL Monocytes # 0.2 (0-1.0) k/uL Eosinophils # 0.1 (0-0.7) k/uL Basophils # 0.1 (0-0.2) k/uL Sodium 132 L (137-145) mmol/L Potassium 4.0 (3.5-5.1) mmol/L Chloride 98 (98-107) mmol/L Carbon Dioxide 18 L (22-30) mmol/L Anion Gap 16 mmol/L BUN 9 (7-17) mg/dL Creatinine 0.74 (0.52-1.04) mg/dL Est GFR (CKD-EPI)AfAm >90 (>60 ml/min/1.73 sqM) Est GFR (CKD-EPI)NonAf 87 (>60 ml/min/1.73 sqM) Glucose 108 H (74-99) mg/dL Calcium 9.7 (8.4-10.2) mg/dL Magnesium 1.9 (1.6-2.3) mg/dL Total Bilirubin 0.6 (0.2-1.3) mg/dL AST 24 (14-36) U/L ALT 13 (4-34) U/L Alkaline Phosphatase 61 (38-126) U/L Total Protein 7.9 (6.3-8.2) g/dL Albumin 4.8 (3.5-5.0) g/dL Lipase 72 (23-300) U/L Urine Opiates Screen Not Detected (NotDetected) Ur Oxycodone Screen Not Detected (NotDetected) Urine Methadone Screen Not Detected (NotDetected) Ur Barbiturates Screen Not Detected (NotDetected) U Tricyclic Antidepress Not Detected (NotDetected) Ur Phencyclidine Scrn Not Detected (NotDetected) Ur Amphetamines Screen Not Detected (NotDetected) U Methamphetamines Scrn Not Detected (NotDetected) U Benzodiazepines Scrn Not Detected (NotDetected) Urine Cocaine Screen Not Detected (NotDetected) U Marijuana (THC) Screen Not Detected (NotDetected) Serum Alcohol 286 H* mg/dL Disposition <Marci Hernandez - Last Filed: 09/26/24 04:00> Is patient prescribed a controlled substance at d/c from ED?: No Time of Disposition: 11:46 <Jam Fowler - Last Filed: 09/26/24 11:46> Clinical Impression: Alcohol intoxication, Situational depression Disposition: HOME SELF-CARE Condition: Good Instructions (If sedation given, give patient instructions): Alcohol Intoxication (ED), Depression (ED) Additional Instructions: Patient should follow a safety plan. Referrals: None,Stated [Primary Care Provider] - 1-2 days
[2024-09-26 00:03] LABS: Amphetamine Screen,Urine Not Detected (NotDetected); Barbiturate Screen,Urine Not Detected (NotDetected); Benzodiazepines Screen,Urine Not Detected (NotDetected); Cocaine Screen,Urine Not Detected (NotDetected); Methadone Screen, Urine Not Detected (NotDetected); Opiate Screen,Urine Not Detected (NotDetected); Oxycodone Screen, Urine Not Detected (NotDetected); Phencyclidine Screen,Urine Not Detected (NotDetected); Tricyclic Antidepressant,Urine Not Detected (NotDetected); Urn Cannabinoid Scrn Not Detected (NotDetected)
[2024-09-26] MEDS: SODIUM CHLORIDE 0.9% 1,000 ML IV STA (00:17)
[2024-09-26 00:36] LABS: Basophils # (A) 0.1 k/uL (0-0.2); Basophils % (A) 1 %; Eosinophils # (A) 0.1 k/uL (0-0.7); Eosinophils % (A) 1 %; HCT 39.3 % (34.0-46.0); HGB 13.4 gm/dL (11.4-16.0); Lymphocytes # (A) 1.5 k/uL (1.0-4.8); Lymphocytes % (A) 30 %; MCH 31.1 pg (25.0-35.0); MCHC 34.1 g/dL (31.0-37.0); MCV 91.3 fL (80.0-100.0); Mean Platelet Volume 6.5; Monocytes # (A) 0.2 k/uL (0-1.0); Monocytes % (A) 5 %; Neutrophils # (A) 3.1 k/uL (1.3-7.7); Neutrophils % (A) 60 %; Platelet Count 303 k/uL (150-450); RBC 4.31 m/uL (3.80-5.40); RDW 13.8 % (11.5-15.5); WBC 5.1 k/uL (3.8-10.6)
[2024-09-26 01:09] LABS: ALT 13 U/L (4-34); AST 24 U/L (14-36); African American GFR (CKD) >90 (>60 ml/min/1.73 sqM); Albumin 4.8 g/dL (3.5-5.0); Alkaline Phosphatase 61 U/L (38-126); Anion Gap 16 mmol/L; Blood Urea Nitrogen 9 mg/dL (7-17); Calcium 9.7 mg/dL (8.4-10.2); Carbon Dioxide 18 mmol/L (22-30); Chloride 98 mmol/L (98-107); Glucose 108 mg/dL (74-99); Lipase 72 U/L (23-300); Magnesium 1.9 mg/dL (1.6-2.3); Non-African American GFR(CKD) 87 (>60 ml/min/1.73 sqM); Sodium 132 mmol/L (137-145); Total Bilirubin 0.6 mg/dL (0.2-1.3); Total Protein 7.9 g/dL (6.3-8.2)
[2024-09-26 01:48] LABS: Alcohol 286 mg/dL
[2024-09-26 12:17] VITALS: BP 170/86; PULSE 105; RESP 18
== END 2024-09-26 12:20 | disposition home or self-care (01) ==
LOC: EC 22:46
DX: F10.129 Alcohol abuse with intoxication, unspecified (principal); F43.21 Adjustment disorder with depressed mood; Z88.2 Allergy status to sulfonamides; Y90.8 Blood alcohol level of 240 mg/100 ml or more
CPT/HCPCS: 82075; 36415; 80053; 83690; 83735; 85025; 80306; 99284; 96360; G0480; 80320

== ENCOUNTER 2024-12-22 19:50 | Emergency (ER) | payer OTHER ==
--- NOTE | 2024-12-22 20:11 | ED ---
Arrhythmia/Palpitations HPI - General Source: patient, RN notes reviewed Mode of arrival: EMS Limitations: no limitations <Alexandria Sun - Last Filed: 12/22/24 20:11> <Elian Gillette - Last Filed: 12/22/24 22:01> - General Chief Complaint: Arrhythmia/Palpitations Stated Complaint: Palpitations Time Seen by Provider: 12/22/24 20:00 - History of Present Illness Initial Comments: Quick Note: This is a 64-year-old female who presents to the emergency department for palpitations. States that an hour prior to arrival she was just sitting down and felt like her heart was racing out of her chest, prompting her to call EMS. Denies any chest pain or shortness of breath associated with this. She did have nausea but no vomiting. States that this issue has happened before and she was supposed to follow-up with cardiology, but has not yet done that. (Alexandria Sun) Dictation was produced using [employer] dictation software. please excuse any grammatical, word or spelling errors. Chief Complaint: 64-year-old female presents to the emergency department for palpitations History of Present Illness: Patient is a 64-year-old female presents to the emergency department palpitations. Patient denies any cardiac history states that she has been seen in the emergency department palpitations in the past. States that she was sitting down when her heart started racing. She called EMS by the time EMS arrived patient symptoms improved. Denies any cardiac history. No associated chest pain or shortness of breath. The ROS documented in this emergency department record has been reviewed and confirmed by me. Those systems with pertinent positive or negative responses have been documented in the HPI. All other systems are other negative and/or noncontributory. (Elian Gillette) - Related Data Previous Rx's Medication Instructions Recorded Famotidine [Pepcid] 20 mg PO Q12HR #60 tab 02/19/18 Folic Acid 1 mg PO DAILY@1200 #30 tab 02/19/18 LORazepam [Ativan] 0.5 mg PO TID PRN #9 tab 02/19/18 Multivitamins, Thera [Multivitamin 1 each PO DAILY@1200 #30 tab 02/19/18 (formulary)] Thiamine [Vitamin B-1] 100 mg PO DAILY@1200 #30 tab 02/19/18 amLODIPine [Norvasc] 5 mg PO DAILY #30 tab 02/23/18 cloNIDine HCL [Catapres] 0.1 mg PO TID #90 tab 02/23/18 Benzonatate [Tessalon Perles] 100 mg PO TID PRN #9 capsule 02/15/24 Allergies Allergy/AdvReac Type Severity Reaction Status Date / Time Sulfa (Sulfonamide Allergy Rash/Hives Verified 12/22/24 19:57 Antibiotics) Review of Systems ROS Other: All systems not noted in ROS Statement are negative. <Alexandria Sun - Last Filed: 12/22/24 20:11> ROS Other: All systems not noted in ROS Statement are negative. <Elian Gillette - Last Filed: 12/22/24 22:01> ROS Statement: Those systems with pertinent positive or pertinent negative responses have been documented in the HPI. 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, hypogylcemia, short term memory loss History of Any Multi-Drug Resistant Organisms: None Reported Past Surgical History: Appendectomy Past Anesthesia/Blood Transfusion Reactions: Previous Problems w/ Anesthesia Past Psychological History: No Psychological Hx Reported Smoking Status: Never smoker Past Alcohol Use History: Abuse, Daily, Heavy Past Drug Use History: None Reported - Past Family History Father Family Medical History: Diabetes Mellitus Additional Family Medical History / Comment(s): ETOH Mother Additional Family Medical History / Comment(s): Heart disease <Alexandria Sun - Last Filed: 12/22/24 20:11> General Exam <Alexandria Sun - Last Filed: 12/22/24 20:11> <Elian Gillette - Last Filed: 12/22/24 22:01> - General Exam Comments Initial Comments: Visual Physical Exam Vital signs reviewed General: Well-appearing, nontoxic, no acute distress. Head: Normocephalic, atraumatic Eyes: PERRLA, EOMI ENT: Airway patent Chest: Nonlabored breathing Skin: No visual rash, normal skin tone Neuro: Alert and oriented 3 Musculoskeletal: No gross abnormalities (Alexandria Sun) PHYSICAL EXAM: General Impression: Alert and oriented x3, not in acute distress HEENT: Normocephalic atraumatic, extra-ocular movements intact, pupils equal and reactive to light bilaterally, mucous membranes moist. Cardiovascular: Heart regular rate and rhythm Chest: Able to complete full sentences, no retractions, no tachypnea Abdomen: abdomen soft, non-tender, non-distended, no organomegaly Musculoskeletal: Pulses present and equal in all extremities, no peripheral magnus ma Motor: no focal deficits noted Neurological: CN II-XII grossly intact, no focal motor or sensory deficits noted Skin: Intact with no visualized rashes Psych: Normal affect and mood (Elian Gillette) Course Vital Signs 12/22/24 12/22/24 19:55 21:27 Temperature 98.0 F Pulse Rate 112 H 105 H Respiratory 18 18 Rate Blood Pressure 127/77 150/83 O2 Sat by Pulse 95 95 Oximetry EKG Findings - EKG Comments: EKG Findings:: My EKG interpretation: Ventricular rate 109, sinus tachycardia, NV 168, QRS 80, QTc 395. No NV prolongation, no QTC prolongation, no ST or T- wave changes noted. Overall, this EKG is unremarkable <Elian Gillette - Last Filed: 12/22/24 22:01> Medical Decision Making <Alexandria Sun - Last Filed: 12/22/24 20:11> - Lab Data Result diagrams: 12/22/24 20:13 12/22/24 20:13 <Elian Gillette - Last Filed: 12/22/24 22:01> - Medical Decision Making I performed the QuickNote portion of this chart. Signed Alexandria Sun PA-C. (Alexandria Sun) Was pt. sent in by a medical professional or institution ([facility], [employer], urgent care, hospital, or group home...) When possible be specific @ -No Did you speak to anyone other than the patient for history (EMS, parent, family, police, friend...)? What history was obtained from this source @ -No Did you review nursing and triage notes (agree or disagree)? Why? @ -I reviewed and agree with nursing and triage notes Were old charts reviewed (outside hosp., previous admission, EMS record, old EKG, old radiological studies, urgent care reports/EKG's, group home records)? Report findings @ -No old charts were reviewed Differential Diagnosis (chest pain, altered mental status, abdominal pain women, abdominal pain men, vaginal bleeding, musculoskeletal, weakness, fever, dyspnea, syncope, headache, dizziness, GI bleed, back pain, seizure, CVA, palpatations, mental health)? @ - Differential Palpitations: Ventricular arrhythmias, atrial arrhythmias, myocardial infarction, anemia, thyrotoxicosis, electrolyte imbalance, hypokalemia, pulmonary embolism, pulmonary disease, drugs, alcohol, anxiety, stress.... This is not meant to be an all-inclusive list. EKG interpreted by me (3pts min.). @ -See above X-rays interpreted by me (1pt min.). @ -Chest x-ray is nonacute CT interpreted by me (1pt min.). @ -None done U/S interpreted by me (1pt. min.). @ -None done What testing was considered but not performed or refused? (CT, X-rays, U/S, labs)? Why? @ -None What meds were considered but not given or refused? Why? @ -None Was smoking cessation discussed for >3mins.? @ -No Were there social determinants of health that impacted care today? How? (Homelessness, low income, unemployed, alcoholism, drug addiction, transportation, low edu. Level, literacy, decrease access to med. care, snf, rehab)? @ -No Was there de-escalation of care discussed even if they declined (Discuss DNR or withdrawal of care, Hospice)? DNR status @ -No What co-morbidities impacted this encounter? (DM, HTN, Smoking, COPD, CAD, Cancer, CVA, ARF, Chemo, Hep., AIDS, mental health diagnosis, sleep apnea, morbid obesity)? @ -None Was patient admitted / discharged? Hospital course, mention meds given and route, prescriptions, significant lab abnormalities, going to OR and other pertinent info. @ -64-year-old female presents to the emergency department palpitations. Patient well-appearing bedside. Denies any symptoms. Brought in from home by EMS for chief complaint of palpitations. EKG is unremarkable. Laboratory evaluation shows alcohol tox occasion with some mild alcoholic ketoacidosis. Patient well-appearing at this time. hall monitor reviewed showing no life-threatening cause of palpitations. Patient be discharged with outpatient referral to cardiology. Did you discuss the management of the patient with other professionals (professionals i.e. , PA, [employer], lab, RT, psych nurse, public health social worker, intake coordinator, teacher, budget officer, showcase trimmer)? Give summary @ -No Was critical care preformed (if so, how long)? @ -No Undiagnosed new problem with uncertain prognosis? @ -No Drug Therapy requiring intensive monitoring for toxicity (Heparin, Nitro, Insulin, Cardizem)? @ -No Were any procedures done? @ -No Diagnosis/symptom? Acute, or Chronic, or Acute on Chronic? Uncomplicated (without systemic symptoms) or Complicated (systemic symptoms)? @ -Palpitations Side effects of treatment? @ -No Exacerbation, Progression, or Severe Exacerbation? @ -No Poses a threat to life or bodily function? How? (Chest pain, [place], [place], pneumonia, PE, COPD, DKA, ARF, appy, cholecystitis, CVA, Diverticulitis, Homicidal, Suicidal, threat to staff... and all critical care pts) @ -No (Elian Gillette) - Lab Data Lab Results 12/22/24 12/22/24 12/22/24 Range/Units 20:13 20:13 20:13 WBC 5.18 (4.50-10.00) 10*3/uL RBC 3.98 L (4.10-5.20) 10*6/uL Hgb 12.6 (12.0-15.0) g/dL Hct 35.6 L (37.2-46.3) % MCV 89.4 (80.0-97.0) fL MCH 31.7 (27.0-32.0) pg MCHC 35.4 (32.0-37.0) g/dL Plt Count 239 (140-440) 10*3/uL MPV 8.7 L (9.5-12.2) fL Immature Gran % (Auto) 0.4 % Neutrophils % 57.2 % Lymphocytes % 31.9 % Monocytes % 5.2 % Eosinophils % 3.9 % Basophils % 1.4 % Immature Gran # 0.02 (0.00-0.04) 10*3/uL Neutrophils # 2.97 (1.80-7.70) 10*3/uL Lymphocytes # 1.65 (0.90-5.00) 10*3/uL Monocytes # 0.27 (0.20-1.00) 10*3/uL Eosinophils # 0.20 (0.04-0.35) 10*3/uL Basophils # 0.07 (0.00-0.10) 10*3/uL PT 9.9 L (10.0-12.5) sec INR 0.9 (<1.2) APTT 23.9 (22.0-30.0) sec Sodium 134 L (137-145) mmol/L Potassium 3.9 (3.5-5.1) mmol/L Chloride 100 (98-107) mmol/L Carbon Dioxide 16 L (22-30) mmol/L Anion Gap 18 mmol/L BUN 19 H (7-17) mg/dL Creatinine 0.78 (0.52-1.04) mg/dL Est GFR (CKD-EPI)AfAm >90 (>60 ml/min/1.73 sqM) Est GFR (CKD-EPI)NonAf 82 (>60 ml/min/1.73 sqM) Glucose 133 H (74-99) mg/dL Calcium 9.6 (8.4-10.2) mg/dL Magnesium 1.7 (1.6-2.3) mg/dL Total Bilirubin 0.6 (0.2-1.3) mg/dL AST 29 (14-36) U/L ALT 15 (4-34) U/L Alkaline Phosphatase 91 (38-126) U/L Troponin I (0.000-0.034) ng/mL Total Protein 7.9 (6.3-8.2) g/dL Albumin 4.8 (3.5-5.0) g/dL Serum Alcohol 212 H* mg/dL 12/22/24 Range/Units 20:13 WBC (4.50-10.00) 10*3/uL RBC (4.10-5.20) 10*6/uL Hgb (12.0-15.0) g/dL Hct (37.2-46.3) % MCV (80.0-97.0) fL MCH (27.0-32.0) pg MCHC (32.0-37.0) g/dL Plt Count (140-440) 10*3/uL MPV (9.5-12.2) fL Immature Gran % (Auto) % Neutrophils % % Lymphocytes % % Monocytes % % Eosinophils % % Basophils % % Immature Gran # (0.00-0.04) 10*3/uL Neutrophils # (1.80-7.70) 10*3/uL Lymphocytes # (0.90-5.00) 10*3/uL Monocytes # (0.20-1.00) 10*3/uL Eosinophils # (0.04-0.35) 10*3/uL Basophils # (0.00-0.10) 10*3/uL PT (10.0-12.5) sec INR (<1.2) APTT (22.0-30.0) sec Sodium (137-145) mmol/L Potassium (3.5-5.1) mmol/L Chloride (98-107) mmol/L Carbon Dioxide (22-30) mmol/L Anion Gap mmol/L BUN (7-17) mg/dL Creatinine (0.52-1.04) mg/dL Est GFR (CKD-EPI)AfAm (>60 ml/min/1.73 sqM) Est GFR (CKD-EPI)NonAf (>60 ml/min/1.73 sqM) Glucose (74-99) mg/dL Calcium (8.4-10.2) mg/dL Magnesium (1.6-2.3) mg/dL Total Bilirubin (0.2-1.3) mg/dL AST (14-36) U/L ALT (4-34) U/L Alkaline Phosphatase (38-126) U/L Troponin I <0.012 (0.000-0.034) ng/mL Total Protein (6.3-8.2) g/dL Albumin (3.5-5.0) g/dL Serum Alcohol mg/dL Disposition <Alexandria Sun - Last Filed: 12/22/24 20:11> Is patient prescribed a controlled substance at d/c from ED?: No Time of Disposition: 22:01 <Elian Gillette - Last Filed: 12/22/24 22:01> Clinical Impression: Palpitations Disposition: HOME SELF-CARE Condition: Fair Instructions (If sedation given, give patient instructions): Heart Palpitations (ED) Referrals: Jordan Glaser MD [Medical Doctor] - 1-2 days
[2024-12-22 20:19] LABS: Basophils # (A) 0.07 10*3/uL (0.00-0.10); Basophils % (A) 1.4 %; Eosinophils % (A) 3.9 %; HCT 35.6 % (37.2-46.3); HGB 12.6 g/dL (12.0-15.0); Lymphocytes # (A) 1.65 10*3/uL (0.90-5.00); Lymphocytes % (A) 31.9 %; MCH 31.7 pg (27.0-32.0); MCHC 35.4 g/dL (32.0-37.0); MCV 89.4 fL (80.0-97.0); Mean Platelet Volume 8.7 fL (9.5-12.2); Monocytes # (A) 0.27 10*3/uL (0.20-1.00); Monocytes % (A) 5.2 %; Neutrophils # (A) 2.97 10*3/uL (1.80-7.70); Neutrophils % (A) 57.2 %; Platelet Count 239 10*3/uL (140-440); RBC 3.98 10*6/uL (4.10-5.20); RDW 13.2 % (11.5-14.5); WBC 5.18 10*3/uL (4.50-10.00)
[2024-12-22 20:29] LABS: INR 0.9 (<1.2); Partial Thromboplastin Time 23.9 sec (22.0-30.0); Prothrombin Time 9.9 sec (10.0-12.5)
[2024-12-22 20:30] LABS: ALT 15 U/L (4-34); African American GFR (CKD) >90 (>60 ml/min/1.73 sqM); Albumin 4.8 g/dL (3.5-5.0); Anion Gap 18 mmol/L; Blood Urea Nitrogen 19 mg/dL (7-17); Calcium 9.6 mg/dL (8.4-10.2); Carbon Dioxide 16 mmol/L (22-30); Chloride 100 mmol/L (98-107); Glucose 133 mg/dL (74-99); Non-African American GFR(CKD) 82 (>60 ml/min/1.73 sqM); Sodium 134 mmol/L (137-145); Total Bilirubin 0.6 mg/dL (0.2-1.3); Total Protein 7.9 g/dL (6.3-8.2)
[2024-12-22 20:38] LABS: AST 29 U/L (14-36); Alcohol 212 mg/dL; Alkaline Phosphatase 91 U/L (38-126); Magnesium 1.7 mg/dL (1.6-2.3); Potassium 3.9 mmol/L (3.5-5.1)
--- NOTE | 2024-12-22 20:47 | XR ---
EXAMINATION TYPE: XR chest 2V DATE OF EXAM: 12/22/2024 8:33 PM COMPARISON: Chest radiographs from 02/15/2024 TECHNIQUE: XR chest 2V Frontal and lateral views of the chest. CLINICAL INDICATION:Female, 64 years old with history of dysrhythmia; FINDINGS: Lungs/Pleura: There is no evidence of pleural effusion, focal consolidation, or pneumothorax. Pulmonary vascularity: Unremarkable. Heart/mediastinum: Cardiomediastinal silhouette is unremarkable. Musculoskeletal: No acute osseous pathology. IMPRESSION: No acute cardiopulmonary disease/process. [facility], , 12/22/2024 8:44 PM
[2024-12-22 22:25] VITALS: BP 143/70; PULSE 98; RESP 16; TEMP 98.4
== END 2024-12-22 22:26 | disposition home or self-care (01) ==
LOC: EC 19:50
DX: R00.2 Palpitations (principal); Z88.2 Allergy status to sulfonamides
CPT/HCPCS: 36415; 93005; 80053; 83735; 84484; 85025; 85610; 85730; 71046; 99285; G0480; 80320